=== PATIENT | male | born 1950 | race Caucasian/White ===

== ENCOUNTER → 2017-04-22 | Outpatient (CLI) | payer BC ==
[~2017-04-22] VITALS: Ht 170.2 cm; Wt 106.3 kg
[~2017-04-22] MED LIST: ACETAMINOPHEN325 M1 PO; AMBIEN 5 MG TABL5 M1 PO; BRILINTA90 MG PO; CELEBREX 200 M200 M1 PO; CRESTOR20 MG PO; CRESTOR5 MG PO; DICLOFENAC SODI75 MG PO; DOXYCYCLINE HY100 M3 PO; EFFIENT10 MG PO; FLOMAX0.4 MG PO; GLUCOSAMINE &1 EACH PO; HYDROCODON-ACE1 EAC1 PO; HYDROCODON-ACE1 EAC8 PO; IBUPROFEN 200200 M1 PO; LIMBREL 500 MG500 MG PO; LISINOPRIL2.5 MG PO; LOPRESSOR 50 MG50 M1; LOW DOSE ASPIRI81 M1 PO; MELOXICAM7.5 MG PO; METHADONE HCL 110 M1 PO; METOPROLOL SUCC25 M1 PO; MOVANTIK12.5 MG PO; MS CONTIN 60 MG60 M1 PO; MS CONTIN100 MG PO; MS CONTIN30 MG PO; MS CONTIN60 MG PO; NAPROSYN250 MG PO; OXYCODONE HCL15 MG PO; OXYCODONE-ACET1 EAC2 PO; REMERON15 MG PO; SENNA8.6 MG PO; TOPROL XL25 MG PO; TRIAMCINOLONE A80 G2 TOP; TYLENOL EXTRA500 MG PO
--- NOTE | ~2017-04-22 | HPC ---
[facility] [address] [place] [address] PAIN MANAGEMENT CONSULTATION Name: LAINA COX Room #: REG [facility] M..#: [id number] Admission: 04/22/17 Attend Phys: Roberto Carlos De León MD Discharge: Date of : 54 Report #: [id number] THIS REPORT FOR: //name// CC: Roberto Carlos York MD DATE OF REGISTRATION: 04/22/2017. Followup visit for management of high risk medications for intractable bilateral knee pain. HISTORY OF PRESENT ILLNESS: The patient returns to pain clinic today for complaint to severe bilateral osteoarthritis of the knee. I have performed injections for him with good success in the past. He was one time over 300 mg of morphine milligram equivalents. We have tapered him slowly down to dose now of 150 mg of morphine per day along with oxycodone 10/325 one tablet 3 times a day for breakthrough pain. 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 His goal is to work as long as he can and medication is helpful for him in doing so. Injections and medications to help with knee pain are part of that process as well. We talked about trying to lower his medications further, but over the course of last year, I have been able a drop was morphine by 50%. He says that he really noticed last drop. I have suggested that we had a coanalgesics celecoxib or Celebrex 200 mg once daily with caveats and precautious regarding the use of the NÚÑEZ-2 inhibiting antiinflammatories. Hope this will make a big difference. I am pretty sure the urine drug screens have been reviewed and are appropriate for medications ordered. There have been no surprises. We will repeat that in the future given his dose above 90 morphine milligram equivalents. We discussed important functional goals keeping him working. He has no significant side effects at this time. PHYSICAL EXAMINATION: GENERAL: This is pleasant, alert and oriented, he is wearing his work clothes. VITAL SIGNS: His blood pressure is 159/92, heart rate 85. EXTREMITIES: He moves from a sitting to standing position and ambulates without antalgic features. He has tenderness in his knees bilaterally. IMPRESSION: 1. Osteoarthritis, bilateral knees. 2. Chronic low back pain. 3. Management of high risk medication. [address] [address] PAIN MANAGEMENT CONSULTATION Name: LAINA COX [facility] #: [id number] Admission: 04/22/17 Attend Phys: Roberto Carlos De León MD Discharge: Date of : 54 Report #: [id number] PROCEDURE: Bilateral injections of the knee under fluoroscopic guidance. The patient was taken to fluoroscopic suite, placed supine, skin was prepped with ChloraPrep of each knee. Using a lateral approach, I advanced 25-gauge needle into the patella into the joint space and injected 1 mL of Omnipaque demonstrated spread of dye within the joint space and subpatellar region. It was then followed by 4 mL of 0.5% bupivacaine with 40 mg of triamcinolone into each joint. He tolerated the injections well. MEDICATIONS: Provided at discharge were MS Contin 60 mg b.i.d. and 30 mg at bedtime for a total of 150 mg a day, oxycodone 10/325 one tablet t.i.d. and Celebrex 200 mg once daily. Followup visit planned in 3 months. <ELECTRONICALLY SIGNED> By: Roberto Carlos De León MD 04/22/17 1714 1157 [id number] Roberto Carlos De León MD /nt
[2017-04-22 08:12] VITALS: BP 129/79
== END | disposition home or self-care (01) ==
LOC: PAIN 06:53
DX: M17.0 Bilateral primary osteoarthritis of knee (principal); M54.5 Low back pain; G89.29 Other chronic pain; F11.20 Opioid dependence, uncomplicated; Z87.891 Personal history of nicotine dependence; Z88.8 Allergy status to other drugs, medicaments and biological substances; Z79.82 Long term (current) use of aspirin; Z79.899 Other long term (current) drug therapy; Z98.890 Other specified postprocedural states

== ENCOUNTER → 2017-07-29 | Outpatient (CLI) | payer BC ==
[~2017-07-29] VITALS: Ht 175.3 cm; Wt 104.9 kg
[~2017-07-29] MED LIST changes: +LIPITOR 20 MG T20 M1 PO
--- NOTE | ~2017-07-29 | HPC ---
[facility] [address] [address] PAIN MANAGEMENT CONSULTATION Name: LAINA COX Room #: REG CL MPastor.#: [id number] Admission: 07/29/17 Attend Phys: Roberto Carlos De León MD Discharge: Date of : 54 Report #: [id number] THIS REPORT FOR: //name// CC: Roberto Carlos York DATE OF SERVICE: 07/29/2017 Followup visit for management of bilateral knee pain. HISTORY OF PRESENT ILLNESS: The patient returns to pain clinic today for renewal of his medication. He remains on high dose morphine. We have been tapering his medication and he is currently at 150 mg of morphine per day in long acting formulation and he also takes 3 oxycodone 10/325 tablets per day. This is a high morphine milligram equivalent over 200 and we have discussed his long-term use of opioids again today in some detail. We discussed efforts to continue to taper his medication. The important issue for the patient, is that he works fulltime. 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 He has a good relationship with this employer, who is hoping to continue him on the job for another year or so. 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 He believes that without medication, he would not be able to continue working and willing to continue his medication. I have suggested co-analgesics to help reduce his reliance on opioids. He denies any significant side effects and safeguards his medication carefully. His most recent urine drug screen was about 18 months ago. It was appropriate for oxycodone and morphine, as they have always been. We will repeat screen in his subsequent visit. Importance of safeguarding all medication and using it as prescribed was discussed. He has a single pharmacy. PHYSICAL EXAMINATION: Pleasant, alert and oriented, without signs of overmedication, depression or anxiety. Moves easily from sitting to standing position but walks with a stiff gait owing to his arthritic knees. There is local tenderness. No fluid or swelling. IMPRESSION: 1. Osteoarthritis, bilateral knees. 2. Chronic low back pain. 3. Management of high risk medication. Currently, over 200 morphine milligram equivalents. PLAN: We will renew his medications under terms [place] [address] PAIN MANAGEMENT CONSULTATION Name: LAINA COX Room #: REG CLI Prabhjot#: [id number] Admission: 07/29/17 Attend Phys: Roberto Carlos De León MD Discharge: Date of : 54 Report #: [id number] have discussed options for treatment of his knees once he retires. I will see him back in three months. By: [id number] [id number] Roberto Carlos De León MD /nt
[2017-07-29 10:07] VITALS: BP 158/77
== END ==
LOC: PAIN 06:14
DX: M17.0 Bilateral primary osteoarthritis of knee (principal); M54.5 Low back pain

== ENCOUNTER → 2018-01-13 | Outpatient (CLI) | payer OTHER ==
[~2018-01-13] VITALS: Ht 177.8 cm; Wt 104.1 kg
[~2018-01-13] MED LIST changes: +GABAPENTIN 100100 MG PO; +GLUCOTROL5 MG PO; +IBUPROFEN 600600 M1 PO; +MELOXICAM15 MG PO
--- NOTE | ~2018-01-13 | HPC ---
[facility] [address] [place] [place] [place] [address] PAIN MANAGEMENT CONSULTATION Name: LAINA COX Room #: REG [facility] M..#: [id number] Admission: 01/13/18 Attend Phys: Roberto Carlos De León MD Discharge: Date of : 54 Report #: [id number] THIS REPORT FOR: //name// CC: Roberto Carlos York MD DATE OF SERVICE: 01/13/2018 Followup visit for osteoarthritis. The patient came to the pain clinic today prepared to continue decreasing his opioid requirements. I have been reducing his dose over the course of the last year. Today, he said that he feels he can make a larger jump. He would like to get down to the 90 morphine milligram equivalents that we had discussed at the last visit. This would be a fairly substantial dose reduction. Just 2 months ago, he was at 190 morphine milligrams. Now we will have him down to 90. The way we plan to do this is to provide him with 30 morphine long acting in the morning and evening and provide him with two oxycodone for breakthrough. At maximum, he was receiving morphine long acting 60 mg twice a day and 30 at bedtime followed by up to three oxycodone for breakthrough. We have done most of the reduction here with the reduction in long-acting morphine. He is slowing down a bit at work and says that he may be ready to retire. One of our goals in providing with his medication was to help him continue to work until he could retire. It appears that we have achieved that goal. PHYSICAL EXAMINATION: He is pleasant, alert and oriented without signs of overmedication. Blood pressure 157/91, heart rate 92 and respirations 16. BMI is 32. Moves from sitting to standing position, ambulates without too much difficulty, has pain across his low back and tenderness. He has bilateral knee pain and aching with some mild crepitus with movements. IMPRESSION: 1. Chronic low back pain with lumbar spondylosis. 2. Chronic osteoarthritis, bilateral knees. PLAN: Medications were provided as described above for 90 morphine milligram equivalents per day. All medications were reviewed and reconciled. I plan to see him back in the pain clinic in 3 months. I have told him if he is going through withdrawal or he finds that this dramatic [address] [address] PAIN MANAGEMENT CONSULTATION Name: LAINA COX Room #: REG [facility] Prabhjot#: [id number] Admission: 01/13/18 Attend Phys: Roberto Carlos De León MD Discharge: Date of : 54 Report #: [id number] drop is uncomfortable for him to call our office and we will see if we can make some arrangements to make the taper more slowly. <ELECTRONICALLY SIGNED> By: Roberto Carlos De León MD 02/21/18 1408 1603 0318 Roberto Carlos De León MD /nt
[2018-01-13 14:21] VITALS: BP 157/91
== END ==
LOC: PAIN 11-29 07:03
DX: M47.896 Other spondylosis, lumbar region (principal); M17.0 Bilateral primary osteoarthritis of knee

== ENCOUNTER → 2018-06-16 | Outpatient (CLI) | payer OTHER ==
[~2018-06-16] VITALS: Ht 177.8 cm; Wt 103.3 kg
[~2018-06-16] MED LIST changes: -GABAPENTIN 100100 MG PO; -IBUPROFEN 600600 M1 PO
--- NOTE | ~2018-06-16 | HPC ---
[facility] [place] [address] PAIN MANAGEMENT CONSULTATION Name: LAINA COX Room #: REG CL MPastor.#: [id number] Admission: 06/16/18 Attend Phys: Roberto Carlos De León MD Discharge: Date of : 54 Report #: [id number] THIS REPORT FOR: //name// CC: Roberto Carlos York DATE OF SERVICE: 06/16/2018 Followup visit for osteoarthritis, bilateral knees. The patient returns to pain clinic today and would like injections in each knee. I performed injections for him with good benefit in the past, providing up to 3-4 months of pain relief at times. He continues to work part-time. He has been a patient of mine for a number of years and our goal has always been to get him to work. He is now 67. He would like to continue working a bit longer. Medication has always been reported to provide significant improvement in his day-to-day activities and allowing him to be more functional at work. Without medication, he tells me he would be unable to work. He was on much higher dose opioid medication, but we have slowly tapered him down to the upper level of the moderate range of opioid prescribing in the CDC guideline at 90 MME per day. I would like to continue to make progress and chopping that further as he moves towards residential. In addition to morphine and oxycodone, which make up to 90 MME, he is on meloxicam 15 mg daily. I am of course concerned about his use of nonsteroidal anti-inflammatory drugs as well as side effects have been discussed including GI, renal and cardiac. He is on an opioid agreement, which was reviewed in detail today, particularly the important aspect of his safeguarding of medication. The use of opioids for chronic intractable pain seems to be reasonable, but we must make sure that the patients understand that there is a welch component of safe use. He reports that his medication is locked up. He treats them as he does his guns. He reports no diversion activities and we have had no red flag behaviors. Periodic urine drug screens will be performed at a random basis in the future. I will see him at 2-month intervals going forward. He does have about another half month of medication remaining. On physical exam and PQRS, he is pleasant, alert and oriented, without signs of overmedication or depression. His blood pressure is 128/86, heart rate 76, respirations 16, BMI 32.7. He is able to ambulate, but has antalgic features. He has stiffness in his knees. He has pain with lateral movement and tenderness mostly along the medial aspect of the right knee and throughout the entire left knee. He describes it as sharp and aching. Drawer test is negative. Sensation and strength in lower extremities are judged to be equal and symmetrical. IMPRESSION: [facility] [address] [place] [address] PAIN MANAGEMENT CONSULTATION Name: LAINA COX Room #: REG CL Prabhjot#: [id number] Admission: 06/16/18 Attend Phys: Roberto Carlos De León MD Discharge: Date of : 54 Report #: [id number] 1. Osteoarthritis of the knee, bilateral. 2. Management of high risk medication. 3. Chronic back pain with spondylosis. PLAN: Bilateral knee injections under fluoroscopic guidance. PROCEDURE: The patient was taken to fluoroscopic suite, placed supine. Skin was prepped with ChloraPrep. Skin was anesthetized first on the left and a 25-gauge needle was gently advanced into the joint. After negative aspiration, I injected a gentle mL of Isovue which demonstrated an arthrogram followed by 3 mL of 0.5% bupivacaine mixed with 40 mg of triamcinolone. He has tolerated the procedure well. We then moved to the right knee and performed the injection in a similar fashion. There were no complications. He tolerated the procedure well. Pain was reduced in the recovery room nearly immediately with the local anesthetic effect. Medications were renewed for the next month and a half. He will pick these prescriptions up at his predetermined time at his pharmacy. K-TRACS will be checked to confirm single prescriber and single pharmacy. By: [id number] Roberto Carlos De León MD /nt
[2018-06-16 09:02] VITALS: BP 128/86
== END | disposition home or self-care (01) ==
LOC: PAIN 06:36
DX: M17.0 Bilateral primary osteoarthritis of knee (principal); M47.816 Spondylosis without myelopathy or radiculopathy, lumbar region; G89.29 Other chronic pain; Z79.899 Other long term (current) drug therapy; Z79.891 Long term (current) use of opiate analgesic; Z88.8 Allergy status to other drugs, medicaments and biological substances

== ENCOUNTER → 2018-08-16 | Outpatient (CLI) | payer OTHER ==
[~2018-08-16] VITALS: Ht 177.8 cm; Wt 103.7 kg
[~2018-08-16] MED LIST changes: +GABAPENTIN 100100 MG PO; +IBUPROFEN 600600 M1 PO
--- NOTE | ~2018-08-16 | HPC ---
[facility] [address] [address] PAIN MANAGEMENT CONSULTATION Name: LAINA COX Room #: REG CL M.R.#: [id number] Admission: 08/16/18 Attend Phys: Roberto Carlos De León MD Discharge: Date of : 54 Report #: [id number] THIS REPORT FOR: //name// CC: Roberto Carlos York MD DATE OF SERVICE: 08/16/2018 REASON FOR CONSULTATION: Followup visit for management of chronic intractable pain. HISTORY OF PRESENT ILLNESS: The patient returns to Pain Clinic today for medication renewal. He is treated for osteoarthritis, most severe in his knees bilaterally. I have been providing with opioid medications now for several years and he has been subjected to buccal drug screenings, which have been appropriate for his medication use. He is on 90 morphine milligram equivalents taking oxycodone 10/325 twice a day and morphine sulfate extended release 30 mg, morning and evening. Long ago, he told me that he intended to retire when he got to the age of 67, but he is now 68 years old and still going strong. He attributes his good pain control to his ability to continue working and is grateful for the relief that he gets allowing him to do so. He denies any significant side effects. Over and over again, we have discussed the opioid crisis. We talked about this at the serious nature of using opioid medications and his responsibilities of safeguarding medication, which he does carefully. He has shown no abusive behaviors in my clinic and I have checked in [facility] prescription drug monitoring and all prescriptions have been provided by myself or through my clinic. There are no additional prescribers noted dating back as far as we can see. PQRS review is completed. He does have osteoarthritis bilaterally of the lower extremity involving the knees. He is mildly overweight at 32.8 and is weight certainly contributes to his pain. He has been addressed in discussions regarding diet control. His pain intensity is a 3 with medication. He is on no blood thinner, but has hypertension and is treated up with medications, which were reviewed elsewhere on the electronic medical record. No changes. He has an opioid agreement, last signed in 2015. He has a risk assessment tool suggesting that he is at low risk for any sort of opioid misuse or addiction. His functional assessment tool is showing that he is doing really pretty well. He does not smoke nor does use alcohol. IMPRESSION: 1. Chronic intractable pain related to osteoarthritis. 2. Management of high risk medications under terms of written opioid agreement. [facility] [address] [place] [address] PAIN MANAGEMENT CONSULTATION Name: LAINA COX [id number] Admission: 08/16/18 Attend Phys: Roberto Carlos De León MD Discharge: Date of : 54 Report #: [id number] He is cautious about safeguarding all medications. 3. Chronic low back pain with spondylosis. He has responded favorably in the past to injections for arthritis and spondylosis and that may remain in our toolbox for treatment going forward in the future. By: [id number] Roberto Carlos De León MD /nt
[2018-08-16 10:05] VITALS: BP 119/89
== END ==
LOC: PAIN 06:54
DX: M54.5 Low back pain (principal); G89.4 Chronic pain syndrome; M25.562 Pain in left knee; M25.561 Pain in right knee; Z79.899 Other long term (current) drug therapy

== ENCOUNTER → 2018-11-24 | Outpatient (CLI) | payer OTHER ==
[~2018-11-24] VITALS: Ht 175.3 cm; Wt 105.7 kg
[~2018-11-24] MED LIST changes: +MOBIC15 MG PO; +MORPHABOND ER30 MG PO
[2018-11-24 09:34] VITALS: BP 141/85
--- NOTE | 2018-11-24 09:35 | NUR ---
Pain Clinic Assessment: 1. History of Osteoarthritis: Left Lower Extremity Right Lower Extremity History of Rheumatoid Arthritis: Not Applicable 2. Height: 5 ft. 9 in. 175.3 cm. Weight: 233.0 lb. oz. 105.688 kg. Patient's BMI: 34.4 3. Vital Signs: BP: 141/85 Pulse: 96 Resp: 16 Temp: 02 Sat: 98 ECG Mon: 4. Pain Intensity: 3 5. Fall Risk: Dizziness: N Needs help standing or walking: N Fallen in the last 3 months: N Fall risk comments: 6. Patient on Blood Thinner: None 7. History of Hypertension: Y 8. Opioid Therapy greater than 6 weeks: Y Opiate Contract Signed: 05/14/16 9. Risk Assessment Tool Provided: LOW RISK 1 10. Functional Assessment Tool: 11. Recreational Drug Use: Never Drug Type: Tobacco Use: Former Smoker Tobacco Type: Amount or Packs/day: How Many Years: Alcohol Use: Past use Frequency: Quant:
--- NOTE | 2018-11-25 07:55 | HPC ---
[facility] [address] [place] [address] PAIN MANAGEMENT CONSULTATION Name: LAINA COX Room #: REG [facility] MPastor.#: [id number] Admission: 11/24/18 Attend Phys: Bailey Pisano Discharge: Date of : 54 Report #: [id number] THIS REPORT FOR: //name// CC: Bailey Milleren Kristymadisonlluvia DATE OF SERVICE: 11/24/2018 CHIEF COMPLAINT: Followup visit for chronic intractable pain. HISTORY OF PRESENT ILLNESS: The patient returns to the pain clinic today for his medication refill. He has severe osteoarthritis in his knees bilaterally and also has low back pain. The patient tells me that his medications are very helpful. He tells me that he did retire for a short time, which was his plan on our last visit that we saw him. 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 He is able to work 5 hours a day and still keep his social security benefits. 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 He says he is happy to be back to work and doing much better with his knee pain since he has returned to work. His pain score today is 3/10, mostly an achy pain, worse with walking or inactivity. He tells me that he does have a little bit of constipation, but it is manageable with medications and has gotten better since he has decreased his meds. He feels like he is on a good regimen right now and would like a refill of his medications today. CURRENT ALLERGIES: KEFLEX. CURRENT MEDICATIONS: Oxycodone 10/325 twice a day as needed, Ambien 5 mg at bedtime as needed, morphine sulfate 30 mg twice a day, meloxicam 15 mg daily, gabapentin 100 mg 3 times a day, Glucotrol 5 mg daily, Lipitor 20 mg at bedtime, Flomax 0.4 mg at bedtime, Senokot daily, glucosamine and chondroitin daily and 81 mg aspirin daily. PQRS: 1. He has a history of osteoarthritis in his bilateral knees and lower back. Denies rheumatoid arthritis. 2. Height is 5 feet 9 inches, weight is 233. BMI is 34.4. 3. Vital signs: Blood pressure 141/85, pulse is 96, respirations 16, oxygen sat is 98%. 4. Pain score is 3/10. 5. Denies dizziness. Does not need help walking [place] [address] PAIN MANAGEMENT CONSULTATION Name: LAINA COX Room #: REG CL Prabhjot#: [id number] Admission: 11/24/18 Attend Phys: Bailey Pisano Discharge: Date of : 54 Report #: [id number] fallen in the last 3 months. 6. The patient is not on a blood thinner. Does have a history of taking hypertension medications. 7. Opioid therapy is greater than 6 weeks, therefore, an opioid signed contract is on the chart. 8. Risk assessment tool is low. His functional assessment is 19/70. 9. Recreational drug use: The patient denies. He is a former smoker and does not use alcohol. We did check the prescription monitoring system. The patient is filling appropriately from Dr. Roberto Carlos De León for his medications. No aberrant behavior noted. His drug screen has been greater than a year, so we will repeat that today. The patient tells me that he does safeguard his medications. PHYSICAL EXAMINATION: GENERAL: This is a very pleasant, alert, well-developed gentleman that appears his stated age. His affect is appropriate. He is a good historian. No signs of depression. HEENT: Normocephalic, atraumatic. Extraocular eye muscles are intact. Mucous membranes are moist and hearing is adequate. NECK: No JVD or adenopathy noted. MUSCULOSKELETAL: He is able to ambulate, but does have some antalgic features. Stiffness in bilateral knees. He describes pain as sharp and achy in his knees. Sensation and strength in lower extremities judged to be equal and symmetrical of 5/5. DIAGNOSTIC IMPRESSION: 1. Chronic intractable pain related to osteoarthritis in his bilateral knees and lower back. 2. Management of high risk medications under terms of written opioid agreement. 3. Chronic back pain with spondylosis. We reviewed the fact that opiate medications are being used to provide analgesia adequate to support activities of daily living, not attempting to achieve a specific pain score on the 0-10 Visual Analog Scale. The current opiate medications are providing sufficient analgesia to allow the patient to participate in activities of daily living. The patient is not exhibiting any aberrant behavior suggestive of drug diversion. The patient is not having any adverse reactions to medications. The patient is not suffering from daytime somnolence or mental acuity changes. The patient is managing opiate-induced constipation with appropriate hliv-eqe-tvyqhxt agents and dietary considerations. The patient was counseled on concern for caution with operating a motor vehicle while using opiate medications. A physical exam was performed and the patient's functional status was evaluated. All patients with back pain were advised against the bed rest greater than 4 days and were advised to return to normal activities. Pain score assessment was [facility] [address] [place] [address] PAIN MANAGEMENT CONSULTATION Name: LAINA COX Room #: REG CL M.R.#: [id number] Admission: 11/24/18 Attend Phys: Bailey Pisano Discharge: Date of : 54 Report #: [id number] noted and the treatment plan was reviewed with the patient. All current medications, both prescribed and OTC were reviewed and reconciled on the electronic medical record. Tobacco screening was accomplished and smoking cessation was advised when indicated. BMI was noted and diet/exercise modification was recommended for all patients following outside normal parameters. I reviewed with the patient today their responsibilities to safeguard prescription medications, reviewed their responsibility to utilize medications only as prescribed by the physician. They are to seek and receive pain medications only from 1 physician group ( [facility]). They are to use 1 pharmacy and keep the clinic informed if they change pharmacies. Their responsibilities include making followup visits in a timely fashion and to avoid abrupt discontinuation of medication usage. Their responsibilities further include bringing their medications (bottles from the pharmacy with residual pills) to the visit for possible confirmation of pill counts and the patient understands it is their responsibility to submit to random drug screens to ensure both that the medications prescribed are present, and that no other controlled substances are present. All prescriptions provided today were generated electronically. PLAN: 1. Treatment options were discussed with the patient today. He tells me that he has been doing quite well on his current pain regimen and would like refills of his medications today. We discussed the CDC guidelines that he is at 90 mEq of morphine per day, which the CDC recommends being at 90 or below. Therefore, in our clinic, it is a practice that we will see him in every 3 months, so scripts given today for morphine sulfate 30 mg twice a day, #60 for today, 4 and 8-week release; Percocet 10/325, #60 for today, for an 8-week release; Meloxicam 15 mg #30 with 2 additional refills for a total of 3 months. The patient does also take Ambien from us but is not needing a refill at this time of that medication. 2. Since it has been greater than a year since his last drug screen, we will repeat the buccal swab today. The patient is agreeable with this understanding that we need to test patients periodically. 3. The patient is seen in collaboration today with Dr. Roberto Carlos De León. <ELECTRONICALLY SIGNED> By: Bailey Pisano 11/25/18 [id number] Bailey Pisano /miguel
== END ==
LOC: PAIN 07:01
DX: M47.816 Spondylosis without myelopathy or radiculopathy, lumbar region (principal); M17.0 Bilateral primary osteoarthritis of knee; G89.4 Chronic pain syndrome; Z79.899 Other long term (current) drug therapy; Z79.891 Long term (current) use of opiate analgesic

== ENCOUNTER → 2019-01-26 | Outpatient (CLI) | payer OTHER ==
[~2019-01-26] VITALS: Ht 175.3 cm; Wt 104.7 kg
[~2019-01-26] MED LIST changes: +OXYCODON-ACETA1 EAC1 PO; +OXYCODONE-APAP1 EAC6 PO
--- NOTE | ~2019-01-26 | HPC ---
[facility] [place] [address] PAIN MANAGEMENT CONSULTATION Name: LAINA COX Room #: REG [facility].#: [id number] Admission: 01/26/19 ������������������ Attend Phys: Roberto Carlos De León MD Discharge: ������������������ Date of : 54 Report #: [id number] THIS REPORT FOR: //name// CC: Roberto Carlos York MD DATE OF SERVICE: 01/26/2019 Followup visit for chronic pain, multiple pain generators. The patient is a longstanding patient of our clinic, who receives opioid medication for the treatment of osteoarthritis and low back pain. He has been reasonably stable and has continued to work over the many years that I have cared for him. One of our goals of treatment to establish early on in 2011 was to get him through the upcoming years into Medicare. He finally reached Medicare age in 2018. 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 He reports that his pain is mostly in his knees today, although he also has pain across his low back. Intensity is 4/10. Knee pain is worse with standing, bending, walking, anything that requires him to be on his knees. He is unable to do some of the work that he was able to do previously. Pain is typically worse in the morning. It is alleviated by his medications. He is grateful for them and has no side effects. He uses ice. MEDICATIONS: For pain are morphine sulfate 30 mg b.i.d. and oxycodone 10/325 one tablet twice daily. His MME is 90. In addition, he uses meloxicam 15 mg once daily, gabapentin 100 mg t.i.d., zolpidem for sleep. Glipizide, atorvastatin, tamsulosin, senna, glucosamine and chondroitin, and aspirin. ALLERGIES: KEFLEX. PQRS is positive for osteoarthritis. Pain score variably 4-10 depending on activity. He is not a fall risk. He is on no blood thinners, but takes medications for hypertension. He has an opioid agreement and his functional assessment to score is 17/70 showing good activity and his risk assessment score is in the low category. We reviewed his opioid agreement and he will carefully safeguard his medications. He denies use of tobacco or alcohol. PHYSICAL EXAMINATION: Pleasant, alert and oriented. No signs of overmedication, depression or addiction. He moves easily from sitting to standing position, but when he ambulates, he has pain in his knees and there are antalgic features to his gait. Straight leg raising as painful mostly within [facility] [address] [place] [address] PAIN MANAGEMENT CONSULTATION Name: LAINA COX Room #: REG [facility]#: [id number] Admission: 01/26/19 ������������������ Attend Phys: Roberto Carlos De León MD Discharge: ������������������ Date of : 54 Report #: [id number] the knees. There is tenderness. There is no swelling noted. No erythema. Most of the pain is medial on both knees, right worse than left. IMPRESSION: 1. Osteoarthritis, bilateral knees. 2. Chronic low back pain. 3. Management of high risk medications under terms of written opioid agreement. I reviewed his prescription drug monitoring program information and his most recent buccal drug screen performed on 11/24/2018. It is appropriate for all medications provided by our clinic, morphine and oxycodone. There are no unexpected findings on his PDMP or on his drug screen. Medications were renewed under terms of our agreement, but I have reduced them slightly decreasing his oxycodone from 10/325-7.5/325. This will result in an MME of 82. PROCEDURE: Bilateral knee injections under fluoroscopic guidance. He was taken to fluoroscopic suite, placed in the supine position. Skin was prepped with ChloraPrep first on the right. A 25-gauge needle was gently advanced into the knee joint and 0.25 mL of Omnipaque demonstrated in arthrogram and was followed by 3 mL of 0.5% bupivacaine mixed with 40 mg of triamcinolone. He tolerated the procedure well. The procedure was repeated on the left. He was discharged in good condition. In the future, he may be a candidate for knee replacement if this remains as primary pain generator. His plain film x-rays do not look bad. We would need to proceed with MRI and refer him on to an orthopedic surgeon. He seems reluctant to do this. Followup visit planned in 3 months. ��������������������������������������������� ���������������������������������������� By: ��������������������������������������������� [id number] Roberto Carlos De León MD /nt
[2019-01-26 08:40] VITALS: BP 155/88
--- NOTE | 2019-01-26 08:57 | NUR ---
Pain Clinic Assessment: 1. History of Osteoarthritis: Left Lower Extremity Right Lower Extremity History of Rheumatoid Arthritis: Not Applicable 2. Height: 5 ft. 9 in. 175.3 cm. Weight: 230.8 lb. oz. 104.690 kg. Patient's BMI: 34.1 3. Vital Signs: BP: 155/88 Pulse: 90 Resp: 16 Temp: 02 Sat: 98 ECG Mon: 4. Pain Intensity: 4 5. Fall Risk: Dizziness: N Needs help standing or walking: N Fallen in the last 3 months: N Fall risk comments: 6. Patient on Blood Thinner: None 7. History of Hypertension: Y 8. Opioid Therapy greater than 6 weeks: Y Opiate Contract Signed: 05/14/16 9. Risk Assessment Tool Provided: LOW RISK 1 10. Functional Assessment Tool: 11. Recreational Drug Use: Never Drug Type: Tobacco Use: Former Smoker Tobacco Type: Amount or Packs/day: How Many Years: Alcohol Use: Past use Frequency: Quant:
== END | disposition home or self-care (01) ==
LOC: PAIN 06:54
DX: M17.0 Bilateral primary osteoarthritis of knee (principal); M54.5 Low back pain; G89.29 Other chronic pain; I10 Essential (primary) hypertension; M19.90 Unspecified osteoarthritis, unspecified site; Z88.8 Allergy status to other drugs, medicaments and biological substances; Z79.82 Long term (current) use of aspirin; Z98.890 Other specified postprocedural states; Z79.899 Other long term (current) drug therapy; Z79.891 Long term (current) use of opiate analgesic; Z87.891 Personal history of nicotine dependence

== ENCOUNTER → 2019-05-12 | Outpatient (CLI) | payer OTHER ==
[~2019-05-12] VITALS: Ht 175.3 cm; Wt 104.3 kg
[2019-05-12 08:03] VITALS: BP 140/79
--- NOTE | 2019-05-12 08:11 | NUR ---
Pain Clinic Assessment: 1. History of Osteoarthritis: Left Lower Extremity Right Lower Extremity History of Rheumatoid Arthritis: Not Applicable 2. Height: 5 ft. 9 in. 175.3 cm. Weight: 230.0 lb. oz. 104.328 kg. Patient's BMI: 33.9 3. Vital Signs: BP: 140/79 Pulse: 93 Resp: 16 Temp: 02 Sat: 95 ECG Mon: 4. Pain Intensity: 2 5. Fall Risk: Dizziness: N Needs help standing or walking: N Fallen in the last 3 months: N Fall risk comments: 6. Patient on Blood Thinner: None 7. History of Hypertension: Y 8. Opioid Therapy greater than 6 weeks: Y Opiate Contract Signed: 05/14/16 9. Risk Assessment Tool Provided: LOW RISK 1 10. Functional Assessment Tool: 11. Recreational Drug Use: Never Drug Type: Tobacco Use: Former Smoker Tobacco Type: Amount or Packs/day: How Many Years: Alcohol Use: Past use Frequency: Quant:
--- NOTE | 2019-05-15 10:52 | HPC ---
[facility] [address] [address] PAIN MANAGEMENT CONSULTATION Name: LAINA COX [id number] Admission: 05/12/19 ������������������ Attend Phys: Bailey Pisano Discharge: ������������������ Date of : 54 Report #: [id number] THIS REPORT FOR: //name// CC: Bailey Pisano Timothy Kristymadisonlluvia DATE OF SERVICE: 05/12/2019 CHIEF COMPLAINT: Chronic intractable pain with multiple pain generators. HISTORY OF PRESENT ILLNESS: This is a very pleasant 68-year-old gentleman who returned to the pain clinic for refill of his medication that he uses to treat his osteoarthritis and his low back pain. He tells me he has been doing quite well, even despite the decrease of his oxycodone strength 3 months ago. He tells me his pain score is 2/10 today. He does have some flare-ups especially in the middle of the night. He tells me during the day, he can handle his pain quite well, being active and using distraction, but at night when he is lying down, seems to be the worse. He does use ice and his medication that he finds very helpful in relieving some of his pain. He tells me since he has decreased his narcotic use, his constipation is better. His injections that he received in his knees helped him at least 90% for the first month or two and now is still at least 50% better. He can tell that he is slowly having more pain and that is why he is waking up in the middle of the night with knee pain. He does have also ongoing low back pain that is achy and sharp. ALLERGIES: KEFLEX and PLAVIX. CURRENT MEDICATIONS: Oxycodone 7.5/325 twice a day, morphine sulfate 30 mg b.i.d., meloxicam 15 mg daily, Ambien p.r.n., gabapentin 100 mg t.i.d., Glucotrol 5 mg daily, atorvastatin 20 mg daily, Flomax 0.4 mg daily, Senna, glucosamine chondroitin, and aspirin. PQRS: 1. Positive for osteoarthritis. He denies any rheumatoid arthritis. 2. Height is 5 feet 9 inches, weight is 230, BMI is 33. 3. Vital signs; blood pressure 140/79, pulse is 93, respirations 16, and oxygen sat is 95. 4. Pain score is 2/10. 5. Fall risk. Denies dizziness. Does not need help walking or standing. He has not fallen in the last 3 months. 6. The patient is not on any blood thinners. He does take medicine for hypertension. 7. Opiate therapy is greater than 6 weeks; therefore, an opiate signed contract is on the chart. 8. Risk assessment tool is low. Functional assessment is . 9. Recreational drug use, he denies. He is a former smoker [place] [address] PAIN MANAGEMENT CONSULTATION Name: LAINA COX Room #: REG CL Prabhjot#: [id number] Admission: 05/12/19 ������������������ Attend Phys: Baiely Pisano Discharge: ������������������ Date of : 54 Report #: [id number] alcohol. We did check the prescription monitoring system. The patient is due to fill his medicine within the week. He was filling them only from our physicians and there is a recent drug screen on the chart as well. PHYSICAL EXAMINATION GENERAL: This is a pleasant, alert, and orientated gentleman who appears his stated age. Placing his pain score today at 2/10 showing no signs of overmedication. HEENT: Normocephalic, atraumatic. Extraocular eye muscles are intact. Mucous membranes are moist. Hearing is adequate. NECK: No JVD or adenopathy. MUSCULOSKELETAL: He moves easily from sitting to standing position when he ambulates. He has pain in his knees and there is some antalgic gait. Straight leg raising is positive in his knees. He has tenderness bilaterally in his knees. No swelling noted. IMPRESSION: 1. Osteoarthritis, bilateral knees. 2. Chronic low back pain, spondylosis. 3. Management of high-risk medications and return to written opioid agreement. We reviewed the fact that opiate medications are being used to provide analgesia adequate to support activities of daily living, not attempting to achieve a specific pain score on the 0-10 Visual Analog Scale. The current opiate medications are providing sufficient analgesia to allow the patient to participate in activities of daily living. The patient is not exhibiting any aberrant behavior suggestive of drug diversion. The patient is not having any adverse reactions to medications. The patient is not suffering from daytime somnolence or mental acuity changes. The patient is managing opiate-induced constipation with appropriate kpua-guu-xvltxuk agents and dietary considerations. The patient was counseled on concern for caution with operating a motor vehicle while using opiate medications. A physical exam was performed and the patient's functional status was evaluated. All patients with back pain were advised against the bed rest greater than 4 days and were advised to return to normal activities. Pain score assessment was noted and the treatment plan was reviewed with the patient. All current medications, both prescribed and OTC were reviewed and reconciled on the electronic medical record. Tobacco screening was accomplished and smoking cessation was advised when indicated. BMI was noted and diet/exercise modification was recommended for all patients following outside normal parameters. I reviewed with the patient today their responsibilities to [address] [place] [address] PAIN MANAGEMENT CONSULTATION Name: LAINA COX Room #: REG [facility] M..#: [id number] Admission: 05/12/19 ������������������ Attend Phys: Bailey ELAINE Pisano Discharge: ������������������ Date of : 54 Report #: [id number] prescription medications, reviewed their responsibility to utilize medications only as prescribed by the physician. They are to seek and receive pain medications only from 1 physician group ( [facility]). They are to use 1 pharmacy and keep the clinic informed if they change pharmacies. Their responsibilities include making followup visits in a timely fashion and to avoid abrupt discontinuation of medication usage. Their responsibilities further include bringing their medications (bottles from the pharmacy with residual pills) to the visit for possible confirmation of pill counts and the patient understands it is their responsibility to submit to random drug screens to ensure both that the medications prescribed are present, and that no other controlled substances are present. All prescriptions provided today were generated electronically. PLAN: 1. We discussed treatment options with the patient today. The patient tells me that he is doing reasonably well, despite the decrease of his medicines though in last 3 months. Scripts given today for MS Contin #60 for today, 4-week and 8-week release and oxycodone 7.5/325, #60 for today for an 8-week release; places the patient at 82.5 morphine milligram milliequivalent well within the CDC guidelines; therefore, he is seen every 3 months. 2. Script given for meloxicam 15 mg, #30 with 2 additional refills. 3. The patient is seen by Dr. Andrew Golden who collaborated care today. ��������������������������������������������� <ELECTRONICALLY SIGNED> ���������������������������������������� By: Bailey Pisano ��������������������������������������������� 05/15/19 [id number] Bailey Pisano /nt
== END ==
LOC: PAIN 06:44
DX: M17.0 Bilateral primary osteoarthritis of knee (principal); M47.816 Spondylosis without myelopathy or radiculopathy, lumbar region; Z79.899 Other long term (current) drug therapy

== ENCOUNTER → 2019-06-15 | Outpatient (CLI) | payer OTHER ==
[~2019-06-15] VITALS: Ht 175.3 cm; Wt 103.8 kg
--- NOTE | ~2019-06-15 | HPC ---
[facility] [place] [address] PAIN MANAGEMENT CONSULTATION Name: LAINA COX Room #: REG [facility] M..#: [id number] Admission: 06/15/19 ������������������ Attend Phys: Roberto Carlos De León MD Discharge: ������������������ Date of : 54 Report #: [id number] THIS REPORT FOR: //name// CC: Roberto Carlos Costello DATE OF SERVICE: 06/15/2019 Followup visit for chronic bilateral knee pain with osteoarthritis. The patient returns to pain clinic today for bilateral knee injections. He has responded very nicely to these. He is also treated with medication for his chronic intractable pain under terms of written opioid agreement established with our clinic. He was seen about 4 weeks ago by Bailey Pisano, the clinical nurse specialist. I reviewed that note. He was seen that day with Dr. Golden as well. He continues on about morphine 80 milligram equivalents including MS Contin 30 mg b.i.d. and oxycodone 7.5 mg 2-3 per day. We have tried to taper him to the lowest effective dose. He has completed an opioid risk assessment tool and his score is 3 for a father with alcoholism. He denies other potential risk factors at this time. I have reviewed his medication use on the prescription drug monitoring program and there are no unexpected entries. PQRS review from 05/12/2019 is unchanged. PHYSICAL EXAMINATION: GENERAL: Pleasant gentleman. VITAL SIGNS: Blood pressure is 138/88, heart rate 93, respirations 16. BMI 33.8. He moves from sitting to standing position, walks with marked antalgic gait. He has tenderness bilaterally of the knees. There is no effusion. He has good range of motion. There is no Cueva cyst or any other deformity noted. No crepitus. There is no radicular component to his pain. IMPRESSION: 1. Osteoarthritis, bilateral knees. 2. Chronic low back pain with spondylosis. 3. Management of high risk medications under terms of written opioid agreement. PLAN: He does not need medication today. He is here for injections. Potential risks and benefits of procedure were reviewed. Once again, he has had this procedure on several occasions with good response. [facility] [address] [place] [address] PAIN MANAGEMENT CONSULTATION Name: LAINA COX [id number] Admission: 06/15/19 ������������������ Attend Phys: Roberto Carlos De León MD Discharge: ������������������ Date of : 54 Report #: [id number] PROCEDURE: Bilateral knee injection under fluoroscopic guidance. He was taken to fluoroscopic suite, placed supine. Skin was prepped with ChloraPrep. A 25-gauge needle was gently advanced into the knee joint on the right and left and Omnipaque demonstrated an arthrogram. At each level, I injected 3 mL of 0.5% bupivacaine mixed with 40 mg triamcinolone. He tolerated the procedures well. Pain score was diminished significantly at discharge and a followup visit planned as needed. ��������������������������������������������� ���������������������������������������� By: ��������������������������������������������� [id number] Roberto Carlos De León MD /miguel
[2019-06-15 14:36] VITALS: BP 138/88
--- NOTE | 2019-06-15 15:54 | NUR ---
Pain Clinic Assessment: 1. History of Osteoarthritis: Left Lower Extremity Right Lower Extremity KNEES History of Rheumatoid Arthritis: Not Applicable 2. Height: 5 ft. 9 in. 175.3 cm. Weight: 228.8 lb. oz. 103.783 kg. Patient's BMI: 33.8 3. Vital Signs: BP: 138/88 Pulse: 93 Resp: 16 Temp: 02 Sat: 97 ECG Mon: 4. Pain Intensity: 6 5. Fall Risk: Dizziness: N Needs help standing or walking: N Fallen in the last 3 months: N Fall risk comments: 6. Patient on Blood Thinner: None 7. History of Hypertension: Y 8. Opioid Therapy greater than 6 weeks: Y Opiate Contract Signed: 05/14/16 9. Risk Assessment Tool Provided: LOW RISK 1 10. Functional Assessment Tool: 11. Recreational Drug Use: Never Drug Type: Tobacco Use: Former Smoker Tobacco Type: Amount or Packs/day: How Many Years: Alcohol Use: Past use Frequency: Quant:
== END | disposition home or self-care (01) ==
LOC: PAIN 06:49
DX: M17.0 Bilateral primary osteoarthritis of knee (principal); G89.29 Other chronic pain; M47.896 Other spondylosis, lumbar region; Z79.891 Long term (current) use of opiate analgesic; Z87.891 Personal history of nicotine dependence; Z88.8 Allergy status to other drugs, medicaments and biological substances; Z79.82 Long term (current) use of aspirin; Z79.899 Other long term (current) drug therapy

== ENCOUNTER → 2019-08-10 | Outpatient (CLI) | payer OTHER ==
[~2019-08-10] VITALS: Ht 172.7 cm; Wt 103.8 kg
[2019-08-10 08:10] VITALS: BP 147/84
--- NOTE | 2019-08-10 08:15 | NUR ---
Pain Clinic Assessment: 1. History of Osteoarthritis: Left Lower Extremity Right Lower Extremity KNEES History of Rheumatoid Arthritis: Not Applicable 2. Height: 5 ft. 8 in. 172.7 cm. Weight: 228.8 lb. oz. 103.783 kg. Patient's BMI: 34.8 3. Vital Signs: BP: 147/84 Pulse: 74 Resp: 16 Temp: 02 Sat: 97 ECG Mon: 4. Pain Intensity: 4 5. Fall Risk: Dizziness: N Needs help standing or walking: N Fallen in the last 3 months: N Fall risk comments: 6. Patient on Blood Thinner: None 7. History of Hypertension: Y 8. Opioid Therapy greater than 6 weeks: Y Opiate Contract Signed: 05/14/16 9. Risk Assessment Tool Provided: LOW RISK 1 10. Functional Assessment Tool: 11. Recreational Drug Use: Never Drug Type: Tobacco Use: Former Smoker Tobacco Type: Amount or Packs/day: How Many Years: Alcohol Use: Past use Frequency: Quant:
--- NOTE | 2019-08-15 09:11 | HPC ---
[facility] [address] [place] [address] PAIN MANAGEMENT CONSULTATION Name: LAINA COX Room #: REG [facility] MRomario.#: [id number] Admission: 08/10/19 Attend Phys: Bailey Pisano Discharge: Date of : 54 Report #: [id number] THIS REPORT FOR: //name// CC: Bailey Pisano Timothy York DATE OF SERVICE: 08/10/2019 CHIEF COMPLAINT: Bilateral knee pain with osteoarthritis. HISTORY OF PRESENT ILLNESS: This is a very pleasant 69-year-old gentleman who returns to the pain clinic today for a refill of his medications that he uses to help treat his chronic intractable pain in his bilateral knees. He reports that the medications are very beneficial in controlling his pain, though he does have flare, especially with weather changes. Dr. Roberto Carlos De León did perform bilateral knee injections on him in June. The patient tells me he was at least 50% better for 6 weeks, then gradually returns back to baseline pain. He understands he can only have those injections about every 4 months, though they are helpful when he is able to have them. Today, he would like a refill of his morphine, morphine and oxycodone for a pain score of 4/10. It is worse with walking and activity and weather changes, and he denies any problems with constipation or daytime sleepiness. ALLERGIES: KEFLEX AND PLAVIX. CURRENT MEDICATIONS: Ambien p.r.n., MS Contin 30 mg b.i.d., oxycodone 7.55/325 b.i.d. p.r.n., meloxicam 15 mg daily, Tylenol Extra Strength p.r.n., gabapentin 100 mg 3 times a day, Glucotrol 5 mg daily, atorvastatin 20 mg at bedtime, Flomax 0.4 mg at bedtime, Senna, glucosamine chondroitin and aspirin 81 mg. PQRS: 1. He has osteoarthritis in his bilateral knees. Denies any rheumatoid arthritis. 2. Height is 5 feet 8 inches, weight is 228, BMI is 34. 3. Vital signs 147/84, pulse is 74, respirations 16, oxygen sat is 94. 4. Pain score is 4/10. 5. Denies dizziness, does not need help walking or standing, has not fallen in the last 3 months. The patient is not on any blood thinners, but does take medicine for hypertension. 6. Opiate therapy is greater than 6 weeks; therefore, an opiate signed contract is on the chart. His risk assessment tool is low. Functional assessment is 70. 7. Recreational drug use, he denies. He is a former smoker and does not drink alcohol. According to the prescription monitoring system, the patient is filling [facility] [address] [place] [address] PAIN MANAGEMENT CONSULTATION Name: LAINA COX Room #: REG CLVirgie Rick#: [id number] Admission: 08/10/19 Attend Phys: Bailey ELAINE Pisano Discharge: Date of : 54 Report #: [id number] appropriately for his medicines and is due for those today. He has a drug screen on the chart that is appropriate for his medications as well. PHYSICAL EXAMINATION: GENERAL: This is a pleasant and alert 69-year-old gentleman who appears his stated age, placing his current pain score at 4/10 today. HEENT: Normocephalic, atraumatic. Extraocular eye muscles are intact. Mucous membranes are moist. MUSCULOSKELETAL: He moves from sitting to standing position without difficulty. He does have pain in his bilateral knees with ambulation and walks with a slightly antalgic gait. Straight leg raising is positive in his knees. He has tenderness bilaterally, with no swelling noted in his knees and no effusions. There is no radicular component to his pain. IMPRESSION: 1. Osteoarthritis in his bilateral knees. 2. Chronic low back pain with spondylosis. 3. Management of high-risk medications under terms of written opioid agreement. We reviewed the fact that opiate medications are being used to provide analgesia adequate to support activities of daily living, not attempting to achieve a specific pain score on the 0-10 Visual Analog Scale. The current opiate medications are providing sufficient analgesia to allow the patient to participate in activities of daily living. The patient is not exhibiting any aberrant behavior suggestive of drug diversion. The patient is not having any adverse reactions to medications. The patient is not suffering from daytime somnolence or mental acuity changes. The patient is managing opiate-induced constipation with appropriate gmuo-myo-ieqwutu agents and dietary considerations. The patient was counseled on concern for caution with operating a motor vehicle while using opiate medications. A physical exam was performed and the patient's functional status was evaluated. All patients with back pain were advised against the bed rest greater than 4 days and were advised to return to normal activities. Pain score assessment was noted and the treatment plan was reviewed with the patient. All current medications, both prescribed and OTC were reviewed and reconciled on the electronic medical record. Tobacco screening was accomplished and smoking cessation was advised when indicated. BMI was noted and diet/exercise modification was recommended for all patients following outside normal parameters. I reviewed with the patient today their responsibilities to safeguard prescription medications, reviewed their responsibility to utilize medications only as prescribed by the physician. They are to seek and receive pain medications only from 1 physician group ( [facility]). They are to use 1 pharmacy and keep the clinic informed if they change pharmacies. Their [facility] [address] [place] [address] PAIN MANAGEMENT CONSULTATION Name: LAINA COX Room #: REG CL M.R.#: [id number] Admission: 08/10/19 Attend Phys: Bailey ELAINE Pisano Discharge: Date of : 54 Report #: [id number] responsibilities include making followup visits in a timely fashion and to avoid abrupt discontinuation of medication usage. Their responsibilities further include bringing their medications (bottles from the pharmacy with residual pills) to the visit for possible confirmation of pill counts and the patient understands it is their responsibility to submit to random drug screens to ensure both that the medications prescribed are present, and that no other controlled substances are present. All prescriptions provided today were generated electronically. PLAN: 1. We discussed treatment options with the patient today. The patient finds his morphine and oxycodone very beneficial in controlling his pain. We will refill them for 30 mg of MS Contin, #60, for today for an 8-week release and oxycodone 7.5/325, #60, for today for an 8-week release. This places him at 82 morphine mEq according to the CDC guidelines. 2. Script given for meloxicam 15 mg, #30, with 2 additional refills, and Ambien 5 mg, #30, with 1 additional refill that he takes very sparingly when he has difficulty sleeping. 3. The patient tells me he is trying to wean off caffeine, but he continues to experience headaches and having a hard time doing this. We encouraged him to try half caffeinated and half decaf for a while to slowly wean off his caffeine. He informs that he will try that since he has had a rough week without his caffeine. 4. The patient seen in collaboration with Dr. Roberto Carlos De León who is available by telephone today and discussed this case previously with him, and Dr. Warren Miraomntes also collaborated care. <ELECTRONICALLY SIGNED> By: Bailey Pisano 08/15/19 0911 [id number] Bailey Pisano /nt
== END ==
LOC: PAIN 07:48
DX: M17.0 Bilateral primary osteoarthritis of knee (principal); M47.816 Spondylosis without myelopathy or radiculopathy, lumbar region; Z79.891 Long term (current) use of opiate analgesic; Z88.8 Allergy status to other drugs, medicaments and biological substances; Z79.899 Other long term (current) drug therapy

== ENCOUNTER → 2019-10-30 | Outpatient (CLI) | payer OTHER ==
[~2019-10-30] VITALS: Ht 172.7 cm; Wt 103.0 kg
[~2019-10-30] MED LIST changes: +OXYCODONE-APAP1 TAB PO; +TYLENOL PM EX-1 EACH PO
[2019-10-30 08:38] VITALS: BP 140/79
--- NOTE | 2019-10-30 08:51 | NUR ---
Pain Clinic Assessment: 1. History of Osteoarthritis: Left Lower Extremity Right Lower Extremity KNEES History of Rheumatoid Arthritis: Not Applicable 2. Height: 5 ft. 8 in. 172.7 cm. Weight: 227.0 lb. oz. 102.967 kg. Patient's BMI: 34.5 3. Vital Signs: BP: 140/79 Pulse: 80 Resp: 16 Temp: 02 Sat: 97 ECG Mon: 4. Pain Intensity: 7 5. Fall Risk: Dizziness: N Needs help standing or walking: N Fallen in the last 3 months: N Fall risk comments: 6. Patient on Blood Thinner: None 7. History of Hypertension: Y 8. Opioid Therapy greater than 6 weeks: Y Opiate Contract Signed: 05/14/16 9. Risk Assessment Tool Provided: LOW RISK 1 10. Functional Assessment Tool: 11. Recreational Drug Use: Never Drug Type: Tobacco Use: Former Smoker Tobacco Type: Cigarettes Amount or Packs/day: 2 ppd How Many Years: 30 Alcohol Use: Yes Frequency: Special Occasions Quant: alyx
--- NOTE | 2019-10-31 07:56 | HPC ---
[facility] [address] [place] [address] PAIN MANAGEMENT CONSULTATION Name: LAINA COX [facility] #: [facility] [id number] Admission: 10/30/19 Attend Phys: Bailey Pisano Discharge: Date of : 54 Report #: [id number] THIS REPORT FOR: //name// CC: Bailey York MD DATE OF SERVICE: 10/30/2019 CHIEF COMPLAINT: Bilateral knee pain with osteoarthritis. HISTORY OF PRESENT ILLNESS: This is a very pleasant 69-year-old gentleman who returns to the pain clinic today for management of his bilateral knee pain. He reports today that his pain score is 7/10. Most of his pain is located in his right knee today. He said over the past 2 weeks, it has gotten significantly worse again. He is wearing a brace on this right knee today. He can pinpoint most of his pain in the inner aspect of his knee. He reports it is worse when sitting still, or sleeping at night. He feels that walking and being active are better, which is the opposite of his usual exacerbation of pain. He does report he is having left knee pain as well and low back pain, though the right knee is more significant today. He is rating a pain score of 7/10. He feels that the oxycodone and MS Contin are beneficial, but feels that he needs to make an appointment for another injection in his knees. Today he would like refills of his medication. He denies any problems with daytime somnolence or constipation. He feels that is controlled with gwow-dlw-agekhah medicines as well as diet. ALLERGIES: KEFLEX AND PLAVIX. CURRENT MEDICATIONS: Flomax, meloxicam, Ambien, MS Contin 30 mg b.i.d., oxycodone 7.5/325 p.r.n., gabapentin 100 mg 3 times a day, Glucotrol, Lipitor, Flomax, senna, glucosamine chondroitin, and aspirin. PQRS: 1. He has osteoarthritis in his lower extremities and most significantly knees. Denies any rheumatoid arthritis. 2. Height is 5 feet 8 inches, weight is 227, BMI is 34. 3. Vital signs 140/79, pulse is 80, respirations 16, oxygen sat is 97. 4. Pain score 7/10. 5. Denies dizziness, does not need help walking, has not fallen in the last 3 months. 6. The patient is not on a blood thinner, does take medicines for hypertension and recently increased this medicine. 7. Opioid therapy is greater than 6 weeks; therefore, an opioid signed contract is on the chart. Risk assessment is low. Functional assessment is . [address] [address] PAIN MANAGEMENT CONSULTATION Name: BROOKELAINA BENITEZ Room #: REG [facility] [id number] Admission: 10/30/19 Attend Phys: Bailey Pisano Discharge: Date of : 54 Report #: [id number] 8. Recreational drug use, he denies. He is a former smoker and occasionally drinks alcohol. According to the prescription monitoring system, the patient is due to fill his medications later this week. He fills in a timely fashion. According to the CDC guidelines, his morphine mEq is 82 per day. There is a recent drug screen on the chart that is appropriate as well. PHYSICAL EXAMINATION: GENERAL: This is a pleasant 69-year-old gentleman who appears his stated age, placing his current pain score at 7/10 today. His affect is appropriate. HEENT: Normocephalic, atraumatic. Extraocular eye muscles are intact. MUSCULOSKELETAL: Pain in bilateral knees, right greater than left in the lower aspect of his right knee. Increased tenderness today with sitting still. Straight leg raising is positive in his knees. He has tenderness. No swelling or no effusion noted in his knees. He is wearing a brace on the right knee today. He has low back lumbosacral tenderness. He moves from the sitting to standing position without difficulty. He walks with an antalgic gait. IMPRESSION: 1. Osteoarthritis of his bilateral knees. 2. Chronic low back pain with spondylosis. 3. Management of high risk medications under terms of written opioid agreement. We reviewed the fact that opiate medications are being used to provide analgesia adequate to support activities of daily living, not attempting to achieve a specific pain score on the 0-10 Visual Analog Scale. The current opiate medications are providing sufficient analgesia to allow the patient to participate in activities of daily living. The patient is not exhibiting any aberrant behavior suggestive of drug diversion. The patient is not having any adverse reactions to medications. The patient is not suffering from daytime somnolence or mental acuity changes. The patient is managing opiate-induced constipation with appropriate zsbr-deg-bcfizhb agents and dietary considerations. The patient was counseled on concern for caution with operating a motor vehicle while using opiate medications. PLAN: 1. We discussed treatment options with the patient today. The patient's last knee injection was in June. I think it is beneficial for him to schedule another injection. He feels that he is not able to do that this month with too many doctors' appointments and missing work. He will call for November appointment. He does find these beneficial and it did help decrease his pain for several months. His right knee increased in pain, just the last 2 weeks. 2. We will refill his MS Contin 30 mg b.i.d., #60 and oxycodone 7.5/325, #60. These were refilled for a 3-month supply sent to the [facility]. [facility] [address] [place] [address] PAIN MANAGEMENT CONSULTATION Name: LAINA COX Room #: REG RAYNA Rick#: [id number] Admission: 10/30/19 Attend Phys: Bailey Pisano Discharge: Date of : 54 Report #: [id number] 3. I will refill the meloxicam 15 mg, #30 with 2 additional refills. The patient is not having any GI upset from these medications. 4. The patient is seen in collaboration with Dr. Roberto Carlos De León. The patient will call for an appointment for November. <ELECTRONICALLY SIGNED> By: Bailey Pisano 10/31/19 0756 [id number] Bailey Pisano /nt
== END ==
LOC: PAIN 06:57
DX: M17.0 Bilateral primary osteoarthritis of knee (principal); M47.816 Spondylosis without myelopathy or radiculopathy, lumbar region; Z79.891 Long term (current) use of opiate analgesic

== ENCOUNTER → 2019-11-16 | Outpatient (CLI) | payer OTHER ==
[~2019-11-16] VITALS: Ht 172.7 cm; Wt 103.5 kg
--- NOTE | ~2019-11-16 | HPC ---
[facility] [address] [place] [address] PAIN MANAGEMENT CONSULTATION Name: LAINA COX Room #: REG CL MRomario.#: [id number] Admission: 11/16/19 Attend Phys: Roberto Carlos De León MD Discharge: Date of : 54 Report #: [id number] THIS REPORT FOR: //name// CC: Roberto Carlos York MD DATE OF SERVICE: 11/16/2019 REASON FOR VISIT: Followup visit for severe bilateral knee pain, chronic degenerative osteoarthritis. SUBJECTIVE: The patient is in the pain clinic today for bilateral knee injections. I performed these for him off and on over the course of many years. Generally receiving no more than 3-4 injections a year. They provide substantial pain relief and allow him to ambulate with much less pain. I have talked with him on each visit about the possibility of seeing an orthopedic surgeon in consultation for consideration of a knee replacement. At this time, he is not interested in that elective procedure. He remains on opioid medication much lower than his prior use. He was previously above 200 morphine milligram equivalents per day and is now down to roughly 80. He uses MS Contin 30 mg b.i.d. and oxycodone 7.5/325 one or two tablets a day for breakthrough pain, prescribed for him under terms of strict opioid agreement. He carefully manages his medication. He was most recently seen in the pain clinic by nurse practitioner, Bailey Pisano and I saw him today on that visit as well. Please review to the medication issues addressed at that visit. PQRS is unchanged from the visit of 2 weeks ago. PHYSICAL EXAMINATION: Also unchanged from prior visit. IMPRESSION: Osteoarthritis, bilateral knees. PROCEDURE: Bilateral knee injection under fluoroscopic guidance. After informed consent, he was taken to the fluoroscopic suite where he was placed in the supine position. We began on the right. Skin was prepped with ChloraPrep and using a medial approach into the capsule and subpatellar location. After negative aspiration, I injected a total of 4 mL of 0.5% bupivacaine mixed with 40 mg of triamcinolone. Needle was removed. We then moved to the left knee and the procedure was performed in identical fashion on that side. There were no complications. [address] [address] PAIN MANAGEMENT CONSULTATION Name: LAINA COX [id number] Admission: 11/16/19 Attend Phys: Roberto Carlos De León MD Discharge: Date of : 54 Report #: [id number] He was observed in recovery room for a short time and discharged. I did renew Ambien at a very low dose 5 mg at bedtime, which he takes intermittently for sleep. He has had no untoward side effects from this medication use properly. We discussed the importance of using these sedating medications in a very strict manner, which has been shown to be helpful and not exceeding are prescribed. Follow up as needed. By: [id number] Roberto Carlos De León MD /miguel
[2019-11-16 14:29] VITALS: BP 150/94
--- NOTE | 2019-11-16 14:42 | NUR ---
Pain Clinic Assessment: 1. History of Osteoarthritis: Left Lower Extremity Right Lower Extremity KNEES History of Rheumatoid Arthritis: Not Applicable 2. Height: 5 ft. 8 in. 172.7 cm. Weight: 228.2 lb. oz. 103.511 kg. Patient's BMI: 34.7 3. Vital Signs: BP: 150/94 Pulse: 89 Resp: 16 Temp: 02 Sat: 97 ECG Mon: 4. Pain Intensity: 7 5. Fall Risk: Dizziness: N Needs help standing or walking: N Fallen in the last 3 months: N Fall risk comments: 6. Patient on Blood Thinner: None 7. History of Hypertension: Y 8. Opioid Therapy greater than 6 weeks: Y Opiate Contract Signed: 05/14/16 9. Risk Assessment Tool Provided: LOW RISK 1 10. Functional Assessment Tool: 11. Recreational Drug Use: Never Drug Type: Tobacco Use: Former Smoker Tobacco Type: Amount or Packs/day: How Many Years: Alcohol Use: Yes Frequency: Quant:
== END | disposition home or self-care (01) ==
LOC: PAIN 06:57
DX: M25.561 Pain in right knee (principal); M25.562 Pain in left knee; M17.0 Bilateral primary osteoarthritis of knee; Z98.890 Other specified postprocedural states; Z79.891 Long term (current) use of opiate analgesic; Z87.891 Personal history of nicotine dependence; Z88.8 Allergy status to other drugs, medicaments and biological substances; Z79.82 Long term (current) use of aspirin; Z79.899 Other long term (current) drug therapy

== ENCOUNTER → 2020-01-25 | Outpatient (CLI) | payer OTHER ==
[~2020-01-25] VITALS: Ht 172.7 cm; Wt 101.5 kg
[2020-01-25 08:37] VITALS: BP 128/77
--- NOTE | 2020-01-25 08:42 | NUR ---
Pain Clinic Assessment: 1. 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 Height: 5 ft. 8 in. 172.7 cm. Weight: 223.8 lb. oz. 101.515 kg. Patient's BMI: 34.0 3. Vital Signs: BP: 128/77 Pulse: 83 Resp: 14 Temp: 02 Sat: 97 ECG Mon: 4. Pain Intensity: 5 5. Fall Risk: Dizziness: N Needs help standing or walking: N Fallen in the last 3 months: N Fall risk comments: 6. Patient on Blood Thinner: None 7. History of Hypertension: Y 8. Opioid Therapy greater than 6 weeks: Y Opiate Contract Signed: 05/14/16 9. Risk Assessment Tool Provided: LOW RISK 3 10. Functional Assessment Tool: 11. Recreational Drug Use: Never Drug Type: Tobacco Use: Former Smoker Tobacco Type: Amount or Packs/day: How Many Years: Alcohol Use: Yes Frequency: Monthly Quant:
--- NOTE | 2020-01-26 10:10 | HPC ---
[facility] [address] [address] PAIN MANAGEMENT CONSULTATION Name: LAINA COX Room #: REG [facility].#: [id number] Admission: 01/25/20 Attend Phys: Bailey Pisano Discharge: Date of : 54 Report #: [id number] THIS REPORT FOR: cc: Timothy York,Timothy Tatum,Bailey HENRY ~ CC: Bailey York DATE OF SERVICE: 01/25/2020 CHIEF COMPLAINT: Bilateral knee pain, chronic degenerative osteoarthritis. HISTORY OF PRESENT ILLNESS: This is a very pleasant 69-year-old gentleman who returns to the pain clinic today for refill of his medications. He uses his medications to help his bilateral knee pain and his lower back pain. Today, he is rating his pain score at 5/10. He feels that it is slightly increased due to weather changes. He continues to work part-time and be as active as he is able. He feels that activity does decrease his pain. If he sits too long, he becomes very stiff and his knees hurt worse. He does use his medications appropriately as well as using cold and distraction techniques. He denies any problems with constipation, especially since he has had a lower dose of opioids than in the past and does not have any daytime sleepiness. The patient reports he is starting the process to have his cataracts removed in both eyes. He has been busy with appointments with the eye surgeon as well as a followup appointment for a stress test that showed some decreased blood flow. He reports these appointments will be next week. ALLERGIES: KEFLEX and PLAVIX. CURRENT LIST OF MEDICATIONS: Ambien, oxycodone 7.5/325, morphine sulfate 30 mg b.i.d., meloxicam 15 mg, Tylenol Extra Strength, gabapentin, glipizide, atorvastatin, Flomax, senna, glucosamine chondroitin and aspirin. PQRS: 1. He has osteoarthritic changes in his bilateral lower extremities, especially his knees. Denies any rheumatoid arthritis. 2. Height is 5 feet 8 inches, weight is 223, BMI is 34. Vital signs; 128/77, pulse is 83, respirations 14, oxygen sat is 97. Pain score is 5/10. Denies dizziness, does not need help walking or standing, has not fallen in the last 3 months. The patient is not on any blood thinners, but does take medicine for hypertension. His opioid therapy is greater than 6 weeks; therefore, an opioid signed contract is on the chart. Risk assessment is low. Functional assessment . 3. Recreational drug use, he denies. [place] [address] PAIN MANAGEMENT CONSULTATION Name: BROOKELAINA EMMANUEL Room #: REG [facility] Rick#: [id number] Admission: 01/25/20 Attend Phys: Bailey Pisano Discharge: Date of : 54 Report #: [id number] drinks alcohol. According to the prescription monitoring system, the patient is filling appropriately for his medications. He is due to fill those today. His morphine mEq is 82 per day at the maximum level of his prescriptions. The patient states some days he does only take one of his breakthrough pain pills. PHYSICAL EXAMINATION: GENERAL: This is alert and orientated, pleasant 69-year-old who appears his stated age, placing his current pain score at 5/10. HEENT: Normocephalic, atraumatic. Extraocular eye muscles are intact. Slight decreased vision, wearing glasses. MUSCULOSKELETAL: Pain is in bilateral knees, greater on the right than the left. He has increased tenderness bilaterally with sitting still. Straight leg raising is positive. No swelling and no effusion noted in his bilateral knees. He walks with an antalgic gait. He also has lumbosacral tenderness in his low back. IMPRESSION: 1. Osteoarthritis of his bilateral knees. 2. Chronic low back pain with spondylosis. 3. Management of high risk medications under terms of written opioid agreement. We reviewed the fact that opiate medications are being used to provide analgesia adequate to support activities of daily living, not attempting to achieve a specific pain score on the 0-10 Visual Analog Scale. The current opiate medications are providing sufficient analgesia to allow the patient to participate in activities of daily living. The patient is not exhibiting any aberrant behavior suggestive of drug diversion. The patient is not having any adverse reactions to medications. The patient is not suffering from daytime somnolence or mental acuity changes. The patient is managing opiate-induced constipation with appropriate kcsl-tuw-vbfftbi agents and dietary considerations. The patient was counseled on concern for caution with operating a motor vehicle while using opiate medications. A physical exam was performed and the patient's functional status was evaluated. All patients with back pain were advised against the bed rest greater than 4 days and were advised to return to normal activities. Pain score assessment was noted and the treatment plan was reviewed with the patient. All current medications, both prescribed and OTC were reviewed and reconciled on the electronic medical record. Tobacco screening was accomplished and smoking cessation was advised when indicated. BMI was noted and diet/exercise modification was recommended for all patients following outside normal parameters. I reviewed with the patient today their responsibilities to [address] [address] PAIN MANAGEMENT CONSULTATION Name: LAINA COX [id number] Admission: 01/25/20 Attend Phys: Bailey Pisano Discharge: Date of : 54 Report #: [id number] prescription medications, reviewed their responsibility to utilize medications only as prescribed by the physician. They are to seek and receive pain medications only from 1 physician group ( [facility]). They are to use 1 pharmacy and keep the clinic informed if they change pharmacies. Their responsibilities include making followup visits in a timely fashion and to avoid abrupt discontinuation of medication usage. Their responsibilities further include bringing their medications (bottles from the pharmacy with residual pills) to the visit for possible confirmation of pill counts and the patient understands it is their responsibility to submit to random drug screens to ensure both that the medications prescribed are present, and that no other controlled substances are present. All prescriptions provided today were generated electronically. PLAN: 1. We discussed treatment options with the patient today. The patient reports that the injections in his bilateral knees afforded him at least 50% relief. He feels that they continued to be slightly improved from his injections in November. He tries to hold off his injections until at least 6 months between injections. 2. The patient reports some days he is able to take less of his oxycodone breakthrough medicines, other days he is requiring more 60 pills last him a month. Today, we will refill his oxycodone 7.5/325, #60 for today 4-week and 8-week release. 3. We will refill his MS Contin 30 mg ER, #60 for 3 months as well as his meloxicam 15 mg, #30 with 2 additional refills. 4. The patient is seen in collaboration with Dr. Roberto Carlos De León today who did see the patient as well. <ELECTRONICALLY SIGNED> By: Bailey Pisano 01/26/20 1010 [id number] Bailey Pisano /nt
== END ==
LOC: PAIN 06:51
DX: M17.0 Bilateral primary osteoarthritis of knee (principal); G89.29 Other chronic pain; M47.816 Spondylosis without myelopathy or radiculopathy, lumbar region; Z88.8 Allergy status to other drugs, medicaments and biological substances; Z68.34 Body mass index [BMI] 34.0-34.9, adult; Z79.899 Other long term (current) drug therapy

== ENCOUNTER → 2020-04-15 | Outpatient (CLI) | payer OTHER ==
[~2020-04-15] VITALS: Ht 172.7 cm; Wt 101.3 kg
[2020-04-15 08:48] VITALS: BP 122/71
--- NOTE | 2020-04-15 09:07 | NUR ---
Pain Clinic Assessment: 1. 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 Height: 5 ft. 8 in. 172.7 cm. Weight: 223.4 lb. oz. 101.334 kg. Patient's BMI: 34.0 3. Vital Signs: BP: 122/71 Pulse: 78 Resp: 14 Temp: 02 Sat: 100 ECG Mon: 4. Pain Intensity: 5 5. Fall Risk: Dizziness: N Needs help standing or walking: N Fallen in the last 3 months: N Fall risk comments: 6. Patient on Blood Thinner: None 7. History of Hypertension: Y 8. Opioid Therapy greater than 6 weeks: Y Opiate Contract Signed: 05/14/16 9. Risk Assessment Tool Provided: LOW RISK 3 10. Functional Assessment Tool: 11. Recreational Drug Use: Never Drug Type: Tobacco Use: Former Smoker Tobacco Type: Amount or Packs/day: How Many Years: Alcohol Use: Yes Frequency: Quant:
--- NOTE | 2020-04-15 14:32 | HPC ---
[facility] [address] [address] PAIN MANAGEMENT CONSULTATION Name: LAINA COX Room #: REG [facility]..#: [id number] Admission: 04/15/20 Attend Phys: Bailey Pisano Discharge: Date of : 54 Report #: [id number] THIS REPORT FOR: cc: Timothy York Steven F. DO Hocker, Amanda CNS ~ CC: Bailey De León MD DATE OF SERVICE: 04/15/2020 CHIEF COMPLAINT: Bilateral knee pain, chronic degenerative osteoarthritis. HISTORY OF PRESENT ILLNESS: This is a very pleasant 69-year-old gentleman who returns to the pain clinic today for refill of his opioid medication that he uses to help treat his ongoing low back pain and bilateral knee pain. Today, he reports a pain score of 5/10, is an aching, sharp, burning feeling. He states that sitting still does increase his pain as well as being on his knees, but he feels that as long as he is working and being active that is beneficial. He continues to work part-time and enjoys it. 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 He believes he is more beneficial working part-time, keeping active that does decrease his pain. He tells me lately he has been having difficulty sleeping and does use the Ambien on an as needed basis. Today, he is requesting refills of his medications. The patient reports that daughter was tested positive for COVID. She does not live with him or near him. He is questioning taking meloxicam since she was told to stop her NSAIDs since she had COVID positive test. He is wondering about his medications. ALLERGIES: KEFLEX and PLAVIX. CURRENT LIST OF MEDICATIONS: Ambien 5 mg p.r.n., oxycodone 7.5/325 b.i.d. p.r.n., MS Contin 30 mg b.i.d., meloxicam 15 mg daily, Tylenol p.r.n., gabapentin, Glucotrol, Lipitor, Flomax, senna, glucosamine chondroitin and aspirin. PQRS: 1. He has arthritic changes in his lower extremities. Denies any rheumatoid arthritis. 2. Height is 5 feet 8 inches, weight is 223, BMI is 34. 3. Vital signs 122/71, pulse is 78, respirations 14, oxygen sat is 100%. 4. Pain score is 5/10. 5. Denies dizziness, does not need help walking or standing, has not fallen in the last 3 [place] [address] PAIN MANAGEMENT CONSULTATION Name: LANIA COX Room #: REG [facility].#: [id number] Admission: 04/15/20 Attend Phys: Bailey Pisano Discharge: Date of : 54 Report #: [id number] 6. The patient is not on any blood thinners. He does have a history of hypertension. 7. Opioid therapy is greater than 6 weeks; therefore, an opioid signed contract is on the chart. Risk assessment tool is low. Functional assessment . 8. Recreational drug use, he denies. He is a former smoker and occasionally drinks alcohol. According to the prescription monitoring system, the patient is filling appropriately. He filled last 03/21/2020 with no aberrant fills. According to the CDC guidelines, his morphine milliequivalent is 82 MMEs per day. We will check a random drug screen on this patient today. PHYSICAL EXAMINATION: GENERAL: He is alert and orientated, very pleasant 69-year-old well-developed, well-nourished gentleman, rating his pain score at 5/10 today. HEENT: Normocephalic, atraumatic. Extraocular eye muscles intact. He is wearing glasses. He does have a mask on. MUSCULOSKELETAL: Pain is located in bilateral knees, greater on the right than the left, which increases with ambulation. Straight leg raising is positive. No swelling noted. He walks with a slightly antalgic gait. He has tenderness in his lumbosacral region of his lumbar spine. IMPRESSION: 1. Osteoarthritis of bilateral knees. 2. Chronic low back pain with spondylosis. 3. Management of high risk medications under terms of written opioid agreement. We reviewed the fact that opiate medications are being used to provide analgesia adequate to support activities of daily living, not attempting to achieve a specific pain score on the 0-10 Visual Analog Scale. The current opiate medications are providing sufficient analgesia to allow the patient to participate in activities of daily living. The patient is not exhibiting any aberrant behavior suggestive of drug diversion. The patient is not having any adverse reactions to medications. The patient is not suffering from daytime somnolence or mental acuity changes. The patient is managing opiate-induced constipation with appropriate jhod-xgs-shjsugy agents and dietary considerations. The patient was counseled on concern for caution with operating a motor vehicle while using opiate medications. PLAN: 1. We discussed treatment options with the patient today. The patient feels that his medications are very beneficial. He would like refills of those today. We will send them electronically for MS Contin 30 mg, #60 for today, 4-week and 8-week release; oxycodone 7.5/325, #60 for 3 months. These will be sent electronically by Dr. Roberto Carlos De León. 2. We did discuss meloxicam and the COVID virus. It is according to the [facility] [address] [place] [address] PAIN MANAGEMENT CONSULTATION Name: LAINA COX Room #: REG [facility] Rick#: [id number] Admission: 04/15/20 Attend Phys: Bailey Pisano Discharge: Date of : 54 Report #: [id number] guidelines not to initiate therapy of anti-inflammatories during this outbreak. The patient has been stable on meloxicam for several years; therefore, we encouraged him to continue, but if he feels safer not continuing it, he may stop; but we will refill it today for him for 3 months. If patient does stop, it was explained to him that he may notice increase in his knee pain. 3. We will refill his Ambien 5 mg with one additional refill. The patient does take this on an as needed basis. 4. A urine drug screen was collected on this patient. The patient seen today in collaboration with Dr. Roberto Carlos De León, who did see the patient as well. <ELECTRONICALLY SIGNED> By: Bailey Pisano 04/15/20 1432 [id number] [id number] Bailey Pisano /nt
== END ==
LOC: PAIN 06:45
DX: M17.0 Bilateral primary osteoarthritis of knee (principal); T50.995A Adverse effect of other drugs, medicaments and biological substances, initial encounter; Z79.899 Other long term (current) drug therapy; Y92.89 Other specified places as the place of occurrence of the external cause

== ENCOUNTER → 2020-07-08 | Outpatient (CLI) | payer OTHER ==
[~2020-07-08] VITALS: Ht 172.7 cm; Wt 102.6 kg
[2020-07-08 08:22] VITALS: BP 125/77
--- NOTE | 2020-07-08 08:31 | NUR ---
Pain Clinic Assessment: 1. 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 Height: 5 ft. 8 in. 172.7 cm. Weight: 226.2 lb. oz. 102.604 kg. Patient's BMI: 34.4 3. Vital Signs: BP: 125/77 Pulse: 76 Resp: 16 Temp: 02 Sat: 98 ECG Mon: 4. Pain Intensity: 4 5. Fall Risk: Dizziness: N Needs help standing or walking: N Fallen in the last 3 months: N Fall risk comments: 6. Patient on Blood Thinner: None 7. History of Hypertension: Y 8. Opioid Therapy greater than 6 weeks: Y Opiate Contract Signed: 05/14/16 9. Risk Assessment Tool Provided: LOW RISK 3 10. Functional Assessment Tool: 11. Recreational Drug Use: Never Drug Type: Tobacco Use: Former Smoker Tobacco Type: Amount or Packs/day: How Many Years: Alcohol Use: Yes Frequency: Monthly Quant: 1
--- NOTE | 2020-07-08 12:26 | HPC ---
[facility] [address] [address] PAIN MANAGEMENT CONSULTATION Name: LAINA COX Room #: REG [facility].#: [id number] Admission: 07/08/20 Attend Phys: Bailey Pisano Discharge: Date of : 54 Report #: [id number] THIS REPORT FOR: cc: Timothy York Steven F. DO Hocker, Amanda CNS ~ CC: Roberto Carlos De León MD DATE OF SERVICE: 07/08/2020 CHIEF COMPLAINT: Bilateral knee pain, chronic degenerative osteoarthritis. HISTORY OF PRESENT ILLNESS: This is a very pleasant 70-year-old gentleman who returns to the pain clinic today for a refill of his medications that he uses to help treat his ongoing osteoarthritis and low back pain. Today, he is reporting a pain score of 4/10, mostly located in his low back and bilateral knees. He states that being up on his knees and walking are more problematic. He is now waking up at night with knee pain. He is wondering about having an injection from Dr. Roberto Carlos eD León. His last steroid injection was in November. He reports that he had at least 6 months of relief where his pain score was diminished in his knees in the last month that has escalated. He would like to scheduled in July if possible. He believes that the medications are beneficial as well as trying to be active and using ice on his knees. He denies any problems with constipation as long as he eats a well-balanced diet and drinks plenty of liquids. The patient does report he had bilateral cataract surgery on his eyes in May, the last procedure was 5 weeks ago. He reports he is able to see much more clear now and only uses glasses for reading. ALLERGIES: KEFLEX and PLAVIX. CURRENT LIST OF MEDICATIONS: Ambien 5 mg at bedtime, oxycodone 7.5/325 b.i.d., morphine sulfate 30 mg b.i.d., meloxicam, Tylenol, gabapentin, Glucotrol, Lipitor, Flomax, senna, glucosamine chondroitin and aspirin. PQRS: 1. He has arthritic changes in his knees bilaterally. Denies any rheumatoid arthritis. 2. Height is 5 feet 8 inches, weight is 226, BMI is 34. 3. Vital signs: Blood pressure 125/77, pulse is 76, respirations 16, oxygen sat is 98, pain score is 4/10. 4. Fall risk. Denies dizziness, does not need help walking or standing, has not fallen in the last 3 months. The patient is not on any blood thinners, but does take medicine for hypertension. Opioid therapy is greater than 6 weeks; therefore, an opioid signed contract is on the chart. Risk assessment is low. [address] [address] PAIN MANAGEMENT CONSULTATION Name: BROOKELAINA EMMANUEL Room #: REG [facility] Rick#: [id number] Admission: 07/08/20 Attend Phys: Bailey Pisano Discharge: Date of : 54 Report #: [id number] Functional assessment . 5. Recreational drug use, he denies. He is a former smoker and occasionally drinks alcohol. According to the prescription monitoring system, his morphine milliequivalent is 82 MMEs. He is filling appropriately and on time, there is a drug screen in his chart that is appropriate for his medications as well. PHYSICAL EXAMINATION: GENERAL: This is alert and orientated, well-developed, well-nourished 70-year-old gentleman who appears his stated age, placing his current pain score at 4/10. HEENT: Normocephalic, atraumatic. Extraocular eye muscles are intact. He is wearing glasses and a mask. MUSCULOSKELETAL: Tenderness is in bilateral knees, greater on the right than the left. Pain increases with ambulation. He has a slightly antalgic gait. No swelling noted. He does have tenderness in the lumbosacral region of his spine as well. IMPRESSION: 1. Osteoarthritis of bilateral knees. 2. Chronic low back pain with spondylosis. 3. Management of high risk medications under terms of written opioid agreement. We reviewed the fact that opiate medications are being used to provide analgesia adequate to support activities of daily living, not attempting to achieve a specific pain score on the 0-10 Visual Analog Scale. The current opiate medications are providing sufficient analgesia to allow the patient to participate in activities of daily living. The patient is not exhibiting any aberrant behavior suggestive of drug diversion. The patient is not having any adverse reactions to medications. The patient is not suffering from daytime somnolence or mental acuity changes. The patient is managing opiate-induced constipation with appropriate hcgr-gwz-rksdcmf agents and dietary considerations. The patient was counseled on concern for caution with operating a motor vehicle while using opiate medications. PLAN: 1. We discussed treatment options with the patient today. We discussed his medications. He finds those beneficial on helping reduce his pain with minimal side effects of constipation and denies any daytime somnolence. I will have Dr. Roberto Carlos De León send his MS Contin 30 mg b.i.d., #60 for today for 4-week and 8-week release as well as his oxycodone 7.5/325, #[address] De León will send his Ambien 5 mg 1 at bedtime, quantity 30 with one additional fill. He takes these as needed for insomnia at nighttime and I will send his meloxicam 15 mg every day, #30 with 5 refills. 2. We did discuss occasional use of Voltaren gel to his knees on a very painful [facility] [address] [place] [address] PAIN MANAGEMENT CONSULTATION Name: LAINA COX Room #: REG [facility] M.R.#: [id number] Admission: 07/08/20 Attend Phys: Bailey Pisano Discharge: Date of : 54 Report #: [id number] day, encouraged him that he is taking the oral nonsteroidal anti-inflammatory, so he should use this sparingly. 3. We did discuss injections in his knees. 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 Typically, we would wait 8 weeks post-surgery, it has been 5. He is going to call there today and then call and try and schedule an appointment in July with Dr. De León. 4. The patient is seen in collaboration with Dr. Roberto Carlos De León who did see him as well today. <ELECTRONICALLY SIGNED> By: Bailey Pisano 07/08/20 1226 [id number] Bailey Pisano /nt
== END ==
LOC: PAIN 06:53
PROVIDERS: ATTEND Clinical Nurse Specialist Adult Health
DX: M17.0 Bilateral primary osteoarthritis of knee (principal); M47.816 Spondylosis without myelopathy or radiculopathy, lumbar region; G89.29 Other chronic pain; Z79.891 Long term (current) use of opiate analgesic

== ENCOUNTER → 2020-08-15 | Outpatient (CLI) | payer OTHER ==
[~2020-08-15] VITALS: Ht 175.3 cm; Wt 102.1 kg
[~2020-08-15] MED LIST changes: +SUPER THERAVIT1 EACH PO
--- NOTE | ~2020-08-15 | HPC ---
[facility] [place] [address] PAIN MANAGEMENT CONSULTATION Name: LAINA COX [id number] Admission: 08/15/20 Attend Phys: Roberto Carlos De León MD Discharge: Date of : 54 Report #: [id number] THIS REPORT FOR: cc: Timothy York,Roberto Carlos Gill MD ~ CC: Roberto Carlos York DATE OF SERVICE: 08/15/2020 Followup visit for bilateral osteoarthritis of the knee. The patient was seen just recently in the clinic for medication management. He has been a longstanding opioid agreement for chronic intractable pain. His primary pain generator today are his knees. He has responded very favorably to intermittent fluoroscopically guided knee injections. His last injection was nearly 9 months ago. Pain intensity has been increasing and he scores it as a 5/10 today and he would like to repeat the injection. He is able to manage much more effectively with less pain. Activity improves and he is able to utilize his medication more effectively and lower doses. PQRS: Positive for osteoarthritis. BMI is 33.2. Vital signs today, blood pressure 127/74, heart rate 82, respirations 16, O2 sat 98, pain intensity 5. He is not a fall risk, is not on a blood thinner. Hypertension is treated with medications reviewed on the electronic medical record today. He is on an opioid agreement. Functional assessment score 34. Denies use of tobacco, drinks alcohol socially. IMPRESSION: Bilateral osteoarthritis of the knee. PROCEDURE: Bilateral knee injections under fluoroscopic guidance. PROCEDURE: Skin was prepped with ChloraPrep. Skin anesthetized first on the left. A 25-gauge needle 2-inch was advanced gently into the knee joint. After negative aspiration, I injected 0.25 mL followed by a second 0.25 mL to demonstrate an arthrogram. This was followed then by 3 mL of 0.5% bupivacaine mixed with 40 mg of triamcinolone. Needle was removed. The C-arm was moved to the right. Skin was prepped again with ChloraPrep. Skin anesthetized with 1% lidocaine. A 25-gauge 2-inch needle advanced into the joint space and an arthrogram obtained with 0.25 mL of Omnipaque. It was followed by an additional 3 mL of 0.5% bupivacaine mixed with 40 mg triamcinolone. He tolerated the procedure well. There were no complications. [address] [address] PAIN MANAGEMENT CONSULTATION Name: LAINA COX [id number] Admission: 08/15/20 Attend Phys: Roberto Carlos De León MD Discharge: Date of : 54 Report #: [id number] He was observed in recovery room and discharge from recovery room in good condition. A followup visit planned as needed for medication management. By: [id number] Roberto Carlos De León MD /nt
[2020-08-15 12:39] VITALS: BP 127/74
--- NOTE | 2020-08-15 12:45 | NUR ---
Pain Clinic Assessment: 1. 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 Height: 5 ft. 9 in. 175.3 cm. Weight: 225.0 lb. oz. 102.060 kg. Patient's BMI: 33.2 3. Vital Signs: BP: 127/74 Pulse: 82 Resp: 16 Temp: 02 Sat: 98 ECG Mon: 4. Pain Intensity: 5 5. Fall Risk: Dizziness: N Needs help standing or walking: N Fallen in the last 3 months: N Fall risk comments: 6. Patient on Blood Thinner: None 7. History of Hypertension: Y 8. Opioid Therapy greater than 6 weeks: Y Opiate Contract Signed: 05/14/16 9. Risk Assessment Tool Provided: LOW RISK 3 10. Functional Assessment Tool: 11. Recreational Drug Use: Never Drug Type: Tobacco Use: Former Smoker Tobacco Type: Amount or Packs/day: How Many Years: Alcohol Use: Yes Frequency: Monthly Quant: 2
== END | disposition home or self-care (01) ==
LOC: PAIN 06:59
PROVIDERS: ATTEND Anesthesiology Pain Medicine
DX: M17.0 Bilateral primary osteoarthritis of knee (principal); G89.29 Other chronic pain; Z98.890 Other specified postprocedural states; Z79.899 Other long term (current) drug therapy; Z87.891 Personal history of nicotine dependence; Z79.82 Long term (current) use of aspirin; Z88.8 Allergy status to other drugs, medicaments and biological substances

== ENCOUNTER → 2020-10-03 | Outpatient (CLI) | payer OTHER ==
[~2020-10-03] VITALS: Ht 175.3 cm; Wt 100.7 kg
[~2020-10-03] MED LIST changes: +PRILOSEC OTC20 MG PO
[2020-10-03 09:33] VITALS: BP 151/90
--- NOTE | 2020-10-03 09:38 | NUR ---
Pain Clinic Assessment: 1. 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 Height: 5 ft. 9 in. 175.3 cm. Weight: 222.0 lb. oz. 100.699 kg. Patient's BMI: 32.8 3. Vital Signs: BP: 151/90 Pulse: 81 Resp: 18 Temp: 02 Sat: 97 ECG Mon: 4. Pain Intensity: 4 5. Fall Risk: Dizziness: N Needs help standing or walking: N Fallen in the last 3 months: N Fall risk comments: 6. Patient on Blood Thinner: None 7. History of Hypertension: Y 8. Opioid Therapy greater than 6 weeks: Y Opiate Contract Signed: 05/14/16 9. Risk Assessment Tool Provided: LOW RISK 3 10. Functional Assessment Tool: 11. Recreational Drug Use: Never Drug Type: Tobacco Use: Former Smoker Tobacco Type: Amount or Packs/day: How Many Years: Alcohol Use: Yes Frequency: Quant:
--- NOTE | 2020-10-07 15:55 | HPC ---
[facility] [address] [place] [address] PAIN MANAGEMENT CONSULTATION Name: LAINA COX Room #: REG [facility].#: [id number] Admission: 10/03/20 Attend Phys: Roberto Carlos De León MD Discharge: Date of : 54 Report #: [id number] THIS REPORT FOR: cc: Timothy York,Bailey Dove MANAGER E [employer]ERCE ~ CC: Roberto Carlos De León DATE OF SERVICE: 10/03/2020 CHIEF COMPLAINT: Bilateral osteoarthritis of his knees. HISTORY OF PRESENT ILLNESS: This is a pleasant 70-year-old gentleman who is returning to the pain clinic for a refill of his opioid medications that he used to help treat his bilateral knee pain. He did undergo a steroid injection, 08/15, by Dr. Roberto Carlos De León and he reports that, that was very beneficial reducing his pain at least 80%. He does like to space those injections out and believes that he will be able to get by with his medications until the end of November or beginning of December before he would need another injection. The patient is reporting a pain score of 4/10 today in his low back and knees. It is an aching discomfort that is worse with being active, walking and bending on his knees. Overall, he feels the medications are beneficial with minimal side effects. He does also use ice and finds that helpful. ALLERGIES: KEFLEX AND PLAVIX. CURRENT LIST OF MEDICATIONS: Omeprazole, multivitamin, Ambien, oxycodone 7.5/325 b.i.d. p.r.n., morphine sulfate 30 mg b.i.d., Tylenol Extra Strength, gabapentin, Glucotrol, Lipitor, Flomax, senna, glucosamine chondroitin and aspirin. PQRS: 1. He has osteoarthritic changes in his lower extremities. Denies any rheumatoid arthritis. 2. Height is 5 feet 9 inches, weight is 222, BMI is 32. Vital signs; 151/90, pulse is 81, respirations 18, oxygen sat is 97%. Pain score is 4/10. 3. Fall risk. Denies dizziness. Does not need help walking or standing. Has not fallen in the last 3 months. The patient is not on any blood thinners but does take medicine for hypertension. Opioid therapy is greater than 6 weeks; therefore, an opioid signed contract is on the chart. Risk assessment is low. Functional assessment is 34/70. 4. Recreational drug use, he denies. He is a former smoker and does drink alcohol occasionally. According to the prescription monitoring system, the patient is filling appropriately in a timely fashion. He is due to fill his medications today. [address] [address] PAIN MANAGEMENT CONSULTATION Name: LAINA COX Room #: REG CL M.R.#: [id number] Admission: 10/03/20 Attend Phys: Roberto Carlos De León MD Discharge: Date of : 54 Report #: [id number] His morphine mEq is 82 MME. PHYSICAL EXAMINATION: GENERAL: This is an alert and orientated, very well-developed, well-nourished 70-year-old gentleman who appears his stated age, placing his current pain score at 4/10 today. HEENT: Normocephalic, atraumatic. Extraocular eye muscles are intact. He is wearing a mask. His speech is fluent. MUSCULOSKELETAL: He has tenderness in his bilateral knees with no edema noted. He has an antalgic gait. Tenderness in the lumbosacral region of his spine as well in the paraspinal musculature. We reviewed the fact that opiate medications are being used to provide analgesia adequate to support activities of daily living, not attempting to achieve a specific pain score on the 0-10 Visual Analog Scale. The current opiate medications are providing sufficient analgesia to allow the patient to participate in activities of daily living. The patient is not exhibiting any aberrant behavior suggestive of drug diversion. The patient is not having any adverse reactions to medications. The patient is not suffering from daytime somnolence or mental acuity changes. The patient is managing opiate-induced constipation with appropriate [id number] agents and dietary considerations. The patient was counseled on concern for caution with operating a motor vehicle while using opiate medications. PLAN: 1. We discussed treatment options with the patient today. The patient is needing a refill of his medications, which he finds very beneficial. These will be sent electronically for 3 months of his oxycodone 7.5/325, #60 and morphine sulfate 30 mg b.i.d., #60 as well as Ambien that he does take on an as needed basis. 2. The patient does report he recently had an EGD and started taking Prilosec. I explained to him that he is on meloxicam, which may cause some irritation to his stomach and to make sure he does take that with plenty of food and drink plenty of liquids with his pills due to the findings of some erosion in his esophagus. The patient reports he is having a repeat EGD in 4 months. 3. The patient found his bilateral knee injections very beneficial and will possibly schedule those at the end of November or early December. He is aware that Dr. Roberto Carlos De León will be out of the office in October. If for some reason he is delayed in coming back, I explained to him that Dr. Warren Miramontes could perform that injection for him if needed. 4. The patient is seen in collaboration today with Dr. Roberto Carlos De León. <ELECTRONICALLY SIGNED> By: Bailey Pisano 10/07/20 [id number] Bailey Pisano /nt
== END ==
LOC: PAIN 09:12
PROVIDERS: ATTEND Anesthesiology Pain Medicine
DX: M17.0 Bilateral primary osteoarthritis of knee (principal); I10 Essential (primary) hypertension; Z79.899 Other long term (current) drug therapy; Z79.891 Long term (current) use of opiate analgesic

== ENCOUNTER → 2021-01-23 | Outpatient (CLI) | payer OTHER ==
[~2021-01-23] VITALS: Ht 175.3 cm; Wt 85.9 kg
[2021-01-23 09:30] VITALS: BP 150/78
--- NOTE | 2021-01-23 09:48 | NUR ---
Pain Clinic Assessment: 1. 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 Height: 5 ft. 9 in. 175.3 cm. Weight: 189.4 lb. oz. 85.911 kg. Patient's BMI: 28.0 3. Vital Signs: BP: 150/78 Pulse: 106 Resp: 14 Temp: 02 Sat: 96 ECG Mon: 4. Pain Intensity: 4 5. Fall Risk: Dizziness: N Needs help standing or walking: Y Fallen in the last 3 months: N Fall risk comments: 6. Patient on Blood Thinner: None 7. History of Hypertension: Y 8. Opioid Therapy greater than 6 weeks: Y Opiate Contract Signed: 05/14/16 9. Risk Assessment Tool Provided: LOW RISK 3 10. Functional Assessment Tool: 11. Recreational Drug Use: Never Drug Type: Tobacco Use: Former Smoker Tobacco Type: Amount or Packs/day: How Many Years: Alcohol Use: No Frequency: Quant:
--- NOTE | 2021-01-23 12:57 | HPC ---
[facility] [place] [address] PAIN MANAGEMENT CONSULTATION Name: LAINA COX Room #: REG [facility].#: [id number] Admission: 01/23/21 Attend Phys: Bailey Pisano Discharge: Date of : 54 Report #: [id number] THIS REPORT FOR: cc: Timothy York Steven F. DO Hocker,Bailey Herrera DATE OF SERVICE: 01/23/2021 CHIEF COMPLAINT: Bilateral osteoarthritis of his knees. HISTORY OF PRESENT ILLNESS: This is a very pleasant gentleman who returns with his today to discuss pain treatment. The patient was recently hospitalized from 10/31 where he was taken by ambulance to [facility] for COVID. He was having significant shortness of breath with rapid onset that day. He had had a previous negative COVID test 3 days earlier, but it was determined that he did have COVID. He was hospitalized until 12/16 where he went to rehab at [facility] for a month and was recently discharged last week. The patient reports during his hospitalization, he did have a heart attack and had pneumonia, then placed a feeding tube, which now he has removed. He has been in physical therapy and is slowly recovering. Today, he is not in need of any opioid medications that we provide for him due to the fact that he was hospitalized for so long that he is wondering about having bilateral knee injection performed for his osteoarthritic knees. Today, the patient reports his knees right being worse than the left, are achy at times. He feels with the physical therapy he is doing has caused increase in pain, especially all the walking. He believes his medication is beneficial that his previous injection for his knees was performed by Dr. De León in August, which did afford him 80% relief, but has now decrease in efficacy due to the therapy. ALLERGIES: KEFLEX AND PLAVIX. CURRENT LIST OF MEDICATIONS: Oxycodone 7.5/325 b.i.d., morphine sulfate 30 mg b.i.d., Prilosec, multivitamin, Ambien, meloxicam, Tylenol PM, gabapentin, Glucotrol, Lipitor, Flomax, Senokot, glucosamine chondroitin and aspirin. PQRS: 1. He has osteoarthritic changes in his lower extremities and knees and spondylitic changes in his back. Denies any rheumatoid arthritis. 2. Height is 5 feet 9 inches, weight is 189, BMI is 28. This is a decrease of his previous weight at 222 in September. The patient report of 167 at his lowest weight during his COVID disease hospitalization. 3. Vital signs; blood pressure 150/78, pulse is 106, respirations 14, oxygen sat is 96%. [address] [address] PAIN MANAGEMENT CONSULTATION Name: LAINA COX [id number] Admission: 01/23/21 Attend Phys: Bailey Pisano Discharge: Date of : 54 Report #: [id number] 4. Pain score is 4/10. 5. Denies dizziness, uses a cane for ambulation. He has not fallen in the last 3 months. 6. The patient is not on any blood thinners, but does take medicine for hypertension. 7. Opioid therapy is greater than 6 weeks; therefore, an opioid signed contract is on the chart. Risk assessment is low. Functional assessment is 34/70. 8. Recreational drug use, he denies. He is a former smoker and does not drink alcohol. According to the prescription monitoring system, he did fill her last prescription in October that script was not used during his hospitalization and per his report, he has the entire prescription available to him. No meds needed today. PHYSICAL EXAMINATION: GENERAL: This is alert and orientated, pale 70-year-old gentleman, slightly pale and guant in appearance due to his recent hospitalization. Does have a scar on his face from being intubated. He is wearing a mask. HEENT: Normocephalic and atraumatic. Extraocular eye muscles are intact. His speech is fluent. MUSCULOSKELETAL: Has tenderness in his bilateral knees. No edema noted. Pain increases with ambulation and is utilizing a cane today. He has tenderness also in the lumbosacral region of his spine. He has an antalgic gait. ABDOMEN: Scar from previous G-tube from hospitalization for COVID. IMAGING: Plain films 3 views of knees bilaterally Findings: Minor arthrosis involving both knees. There is some right medial tibiofemoral compartment joint space narrowing. No effusion present. PLAN: 1. We discussed treatment options with the patient today. The patient is wondering about an injection in his knees. He has had greater than 80% relief from these injections in the past and found them very beneficial. He is doing physical therapy currently, which has aggravated his knees greater on the right and is wondering about a repeat injection. Dr. De León was present for part of this discussion, it was determined that we will perform x-rays of his bilateral knees today to determine the extent of his osteoarthritis and then schedule him for Synvisc injections in his knees bilaterally. The patient is not on any blood thinners and we will be able to perform these next week. Hopefully, this will aid in some of his discomfort and then be able to continue his rehabilitation therapy post-COVID VAC infection. 2. Orders were written for bilateral knee 3-view plain x-rays and Synvisc medications to be obtained for his procedure next week. 3. The patient is seen in collaboration with Dr. Roberto Carlos De León who did see the [facility] [address] [place] [address] PAIN MANAGEMENT CONSULTATION Name: LAINA COX Room #: [facility] [id number] Admission: 01/23/21 Attend Phys: Bailey Pisano Discharge: Date of : 54 Report #: [id number] patient as well today. Time spent with the patient in consultation, reviewing pertinent imaging, reviewing studies, clinical notes, physician reports and examination in correlation of physical findings, medical documentation to determine possible treatments of 20 minutes. Time spent in preparation for appointment, reviewing, prescription monitoring system, previous records and proposed treatment options, reviewing current medications of 5 minutes. Time spent with preparing and sending of prescriptions and x-ray orders and documentation of visit and plan of treatment with collaborated physician of Dr. Roberto Carlos De León of 10 minutes. Total time spent 35 minutes. <ELECTRONICALLY SIGNED> By: Bailey Pisano 01/23/21 1257 [id number] Bailey Pisano /nt
== END | disposition home or self-care (01) ==
LOC: RAD 06:41 → PAIN 06:41
PROVIDERS: ATTEND Clinical Nurse Specialist Adult Health
DX: M17.0 Bilateral primary osteoarthritis of knee (principal); M25.561 Pain in right knee; M25.562 Pain in left knee; Z98.890 Other specified postprocedural states; Z79.899 Other long term (current) drug therapy; Z87.891 Personal history of nicotine dependence

== ENCOUNTER → 2021-01-27 | Outpatient (CLI) | payer OTHER ==
[~2021-01-27] VITALS: Ht 175.3 cm; Wt 82.9 kg
[2021-01-27 10:52] VITALS: BP 124/69
--- NOTE | 2021-01-27 11:03 | NUR ---
Pain Clinic Assessment: 1. 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 Height: 5 ft. 9 in. 175.3 cm. Weight: 182.8 lb. oz. 82.918 kg. Patient's BMI: 27.0 3. Vital Signs: BP: 124/69 Pulse: 91 Resp: 16 Temp: 02 Sat: 96 ECG Mon: 4. Pain Intensity: 3 5. Fall Risk: Dizziness: Y Needs help standing or walking: Y Fallen in the last 3 months: N Fall risk comments: 6. Patient on Blood Thinner: None 7. History of Hypertension: Y 8. Opioid Therapy greater than 6 weeks: Y Opiate Contract Signed: 05/14/16 9. Risk Assessment Tool Provided: LOW RISK 3 10. Functional Assessment Tool: 11. Recreational Drug Use: Never Drug Type: Tobacco Use: Former Smoker Tobacco Type: Amount or Packs/day: How Many Years: Alcohol Use: No Frequency: Quant:
== END | disposition home or self-care (01) ==
LOC: PAIN 10:29
PROVIDERS: ATTEND Anesthesiology Pain Medicine
DX: M17.0 Bilateral primary osteoarthritis of knee (principal); M25.561 Pain in right knee; M25.562 Pain in left knee; Z98.890 Other specified postprocedural states; Z87.891 Personal history of nicotine dependence; Z79.899 Other long term (current) drug therapy; Z88.8 Allergy status to other drugs, medicaments and biological substances

== ENCOUNTER → 2021-02-10 | Outpatient (CLI) | payer OTHER ==
[~2021-02-10] VITALS: Ht 175.3 cm; Wt 85.0 kg
[2021-02-10 09:55] VITALS: BP 132/75
--- NOTE | 2021-02-10 10:02 | NUR ---
Pain Clinic Assessment: 1. 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 Height: 5 ft. 9 in. 175.3 cm. Weight: 187.4 lb. oz. 85.004 kg. Patient's BMI: 27.7 3. Vital Signs: BP: 132/75 Pulse: 87 Resp: 14 Temp: 02 Sat: 97 ECG Mon: 4. Pain Intensity: 3 5. Fall Risk: Dizziness: N Needs help standing or walking: Y Fallen in the last 3 months: N Fall risk comments: 6. Patient on Blood Thinner: None 7. History of Hypertension: Y 8. Opioid Therapy greater than 6 weeks: Y Opiate Contract Signed: 05/14/16 9. Risk Assessment Tool Provided: LOW RISK 3 10. Functional Assessment Tool: 11. Recreational Drug Use: Never Drug Type: Tobacco Use: Former Smoker Tobacco Type: Amount or Packs/day: How Many Years: Alcohol Use: No Frequency: Quant:
== END | disposition home or self-care (01) ==
LOC: PAIN 06:56
PROVIDERS: ATTEND Anesthesiology Pain Medicine
DX: M17.0 Bilateral primary osteoarthritis of knee (principal); M25.561 Pain in right knee; M25.562 Pain in left knee; G89.29 Other chronic pain; Z98.890 Other specified postprocedural states; Z79.899 Other long term (current) drug therapy

== ENCOUNTER → 2021-02-13 | Outpatient (CLI) | payer OTHER | LOC: RAD 09:30 | PROVIDERS: ATTEND Internal Medicine | DX: R91.1 Solitary pulmonary nodule (principal); J84.89 Other specified interstitial pulmonary diseases; J98.4 Other disorders of lung; R06.00 Dyspnea, unspecified ==

== ENCOUNTER → 2021-02-17 | Outpatient (CLI) | payer OTHER | LOC: LAB 13:52 | PROVIDERS: ATTEND Internal Medicine | DX: Z20.822 Contact with and (suspected) exposure to COVID-19 (principal) ==

== ENCOUNTER → 2021-02-21 | Outpatient (CLI) | payer OTHER ==
--- NOTE | 2021-02-27 17:31 | PFR/MVV ---
[facility] [place] [address] PULMONARY FUNCTION MVV/REPORT Name: LAINA COX Room #: REG [facility].#: [id number] Admission: 02/21/21 Attend Phys: John Barry MD Discharge: Date of : 54 Report #: [id number] THIS REPORT FOR: //name// >> SPIROMETRY: (BTPS) Height: 69 in cm Weight: 190 lbs kg Exam Date: 02/21/21 PRE-RX POST-RX PRED BEST %PRED BEST %PRED %CHG FVC LITERS . 4.27 . 2.74 . 64 . 2.77 . 65 . 1 FEV1 LITERS . 2.91 . 1.87 . 64 . 1.79 . 62 . -4 FEV1/FVC % . 69 . 68 . 99 . 65 . 94 . -5 [id number]% L/Sec . 2.70 . 1.21 . 45 . 1.27 . 47 . 5 PEF L/SEC . 8.10 . 2.65 . 33 . 2.83 . 35 . 6 FEF50/FIF50 UNITLESS . <1.00 . 0.46 . . 0.65 . . 41 MVV L/Min . . . f 1/Min . . . >> LUNG VOLUMES: (BTPS) PRE-RX POST-RX PRED AVG %PRED AVG %PRED %CHG VC Liters . 4.27 . 3.60 . 84 . . . TLC Liters . 6.30 . 3.66 . 58 . . . RV Liters . 2.44 . 0.06 . 3 . . . RV/TLC % . 40 . 2 . 4 . . . FRC PL Liters . 3.49 . 0.44 . 13 . . . FRC N2 Liters . 3.49 . . . . . ERV Liters . 1.45 . 0.38 . 26 . . . IC Liters . 2.90 . 3.30 . 114 . . . >> DIFFUSION: DLCO ml/Min/mmHg . 21.9 . 10.1 . 46 . . . DL Marcos ml/Min/mmHg . 21.9 . 10.1 . 46 . . . DLCO/VA ml/Min/mmHg . 3.53 . 3.42 . 97 . . . VA Liters . 6.90 . 2.95 . 43 . . . COMMENTS: COMMENTS: >> RESISTANCE: [facility] [address] [place] [address] PULMONARY FUNCTION MVV/REPORT Name: LAINA COX Room #: REG [facility].#: [id number] Admission: 02/21/21 Attend Phys: John Barry MD Discharge: Date of : 54 Report #: [id number] PRE-RX PRED AVG %PRED Raw Total cmH20/L/Sec . . 4.63 . Raw Insp cmH20/L/Sec . . 6.63 . Raw Exp cmH20/L/Sec . . 5.71 . Raw cmH20/L/Sec . 1.30 . 2.31 . 178 Gaw L/Sec/cmH20 . 0.837 . 0.433 . 52 sRaw cmH20 Sec . 4.52 . 5.76 . 128 sGaw l/cmH20 Sec . 0.221 . 0.714 . 78 Vtq Liters . . 2.50 . # = OUTSIDE 95% CONFIDENCE INTERVAL CALIBRATION: PRED: 3.00 ACTUAL: EXP 3.01 INSP 3.02 [facility]-OL10-06 [facility] N-1804-4 >> INTERPRETATION/IMPRESSION: Spirometric examination revealed moderate obstructive ventilatory defect. There was no significant bronchodilator response. Lung volumes revealed moderately reduced total lung capacity. Diffusion capacity is moderately reduced, normal when corrected for alveolar volume. Flow volume loop is consistent with restrictive pattern. IMPRESSION: Moderate mixed obstructive and restrictive ventilatory defect. <ELECTRONICALLY SIGNED> By: Justus Garcia MD 02/27/21 1731 Justus Garcia MD /nt
== END ==
LOC: PUL 07:56
PROVIDERS: ATTEND Internal Medicine
DX: J98.4 Other disorders of lung (principal); J84.9 Interstitial pulmonary disease, unspecified; I70.0 Atherosclerosis of aorta; I25.10 Atherosclerotic heart disease of native coronary artery without angina pectoris; I51.7 Cardiomegaly; M25.78 Osteophyte, vertebrae; Z95.5 Presence of coronary angioplasty implant and graft; Z88.8 Allergy status to other drugs, medicaments and biological substances; Z86.16 Personal history of COVID-19

== ENCOUNTER → 2021-03-03 | Outpatient (CLI) | payer OTHER ==
[~2021-03-03] VITALS: Ht 175.3 cm; Wt 87.3 kg
[2021-03-03 09:13] VITALS: BP 131/80
--- NOTE | 2021-03-03 09:27 | NUR ---
Pain Clinic Assessment: 1. 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 Height: 5 ft. 9 in. 175.3 cm. Weight: 192.4 lb. oz. 87.272 kg. Patient's BMI: 28.4 3. Vital Signs: BP: 131/80 Pulse: 87 Resp: 16 Temp: 02 Sat: 98 ECG Mon: 4. Pain Intensity: 2-3 5. Fall Risk: Dizziness: N Needs help standing or walking: N Fallen in the last 3 months: N Fall risk comments: 6. Patient on Blood Thinner: None 7. History of Hypertension: Y 8. Opioid Therapy greater than 6 weeks: Y Opiate Contract Signed: 05/14/16 9. Risk Assessment Tool Provided: LOW RISK 3 10. Functional Assessment Tool: 11. Recreational Drug Use: Never Drug Type: Tobacco Use: Former Smoker Tobacco Type: Amount or Packs/day: How Many Years: Alcohol Use: No Frequency: Quant:
== END | disposition home or self-care (01) ==
LOC: PAIN 06:55
PROVIDERS: ATTEND Anesthesiology Pain Medicine
DX: M17.0 Bilateral primary osteoarthritis of knee (principal); M25.561 Pain in right knee; M25.562 Pain in left knee; M19.90 Unspecified osteoarthritis, unspecified site; Z98.890 Other specified postprocedural states; Z79.899 Other long term (current) drug therapy; Z20.822 Contact with and (suspected) exposure to COVID-19; Z87.891 Personal history of nicotine dependence; Z88.8 Allergy status to other drugs, medicaments and biological substances

== ENCOUNTER → 2021-04-10 | Outpatient (CLI) | payer OTHER | LOC: RAD 08:55 | PROVIDERS: ATTEND Internal Medicine | DX: J98.4 Other disorders of lung (principal) ==

== ENCOUNTER → 2021-05-15 | Outpatient (CLI) | payer OTHER ==
[~2021-05-15] VITALS: Ht 175.3 cm; Wt 91.6 kg
[~2021-05-15] MED LIST changes: +PERCOCET 7.5-31 EAC1 PO; +PREDNISONE 10 M10 M1 PO
[2021-05-15 10:28] VITALS: BP 124/74
--- NOTE | 2021-05-15 10:46 | NUR ---
Pain Clinic Assessment: 1. 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 Height: 5 ft. 9 in. 175.3 cm. Weight: 202.0 lb. oz. 91.627 kg. Patient's BMI: 29.8 3. Vital Signs: BP: 124/74 Pulse: 88 Resp: 14 Temp: 02 Sat: 97 ECG Mon: 4. Pain Intensity: 2 5. Fall Risk: Dizziness: N Needs help standing or walking: N Fallen in the last 3 months: N Fall risk comments: 6. Patient on Blood Thinner: None 7. History of Hypertension: Y 8. Opioid Therapy greater than 6 weeks: Y Opiate Contract Signed: 05/14/16 9. Risk Assessment Tool Provided: LOW RISK 3 10. Functional Assessment Tool: 11. Recreational Drug Use: Never Drug Type: Tobacco Use: Former Smoker Tobacco Type: Amount or Packs/day: How Many Years: Alcohol Use: No Frequency: Quant:
== END ==
LOC: PAIN 06:59
PROVIDERS: ATTEND Clinical Nurse Specialist Adult Health
DX: M17.0 Bilateral primary osteoarthritis of knee (principal); G89.29 Other chronic pain; M47.816 Spondylosis without myelopathy or radiculopathy, lumbar region; M25.511 Pain in right shoulder; I10 Essential (primary) hypertension; Z86.16 Personal history of COVID-19; Z79.891 Long term (current) use of opiate analgesic; Z79.899 Other long term (current) drug therapy; Z87.891 Personal history of nicotine dependence; Z56.0 Unemployment, unspecified; Z88.1 Allergy status to other antibiotic agents

== ENCOUNTER → 2021-05-16 | Outpatient (CLI) | payer OTHER | LOC: CAT 08:19 | PROVIDERS: ATTEND Internal Medicine | DX: J47.9 Bronchiectasis, uncomplicated (principal); I25.10 Atherosclerotic heart disease of native coronary artery without angina pectoris; I51.7 Cardiomegaly; J84.9 Interstitial pulmonary disease, unspecified; Z86.16 Personal history of COVID-19 ==

== ENCOUNTER → 2021-05-20 | Outpatient (CLI) | payer OTHER | LOC: MRI 10:16 | PROVIDERS: ATTEND Clinical Nurse Specialist Adult Health | DX: S43.431A Superior glenoid labrum lesion of right shoulder, initial encounter (principal); M19.011 Primary osteoarthritis, right shoulder; X58.XXXA Exposure to other specified factors, initial encounter; Y93.89 Activity, other specified; Y92.89 Other specified places as the place of occurrence of the external cause; Y99.8 Other external cause status ==

== ENCOUNTER → 2021-08-14 | Outpatient (CLI) | payer OTHER ==
[~2021-08-14] VITALS: Ht 175.3 cm; Wt 97.1 kg
[~2021-08-14] MED LIST changes: +MS CONTIN15 MG PO
[2021-08-14 08:59] VITALS: BP 117/77
--- NOTE | 2021-08-14 09:16 | NUR ---
Pain Clinic Assessment: 1. 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 Height: 5 ft. 9 in. 175.3 cm. Weight: 214.0 lb. oz. 97.070 kg. Patient's BMI: 31.6 3. Vital Signs: BP: 117/77 Pulse: 79 Resp: 14 Temp: 02 Sat: 99 ECG Mon: 4. Pain Intensity: 2 WITH MEDS 8 BETWEEN MED 5. Fall Risk: Dizziness: N Needs help standing or walking: N Fallen in the last 3 months: N Fall risk comments: 6. Patient on Blood Thinner: None 7. History of Hypertension: Y 8. Opioid Therapy greater than 6 weeks: Y Opiate Contract Signed: 05/14/16 9. Risk Assessment Tool Provided: LOW RISK 3 10. Functional Assessment Tool: 11. Recreational Drug Use: Never Drug Type: Tobacco Use: Former Smoker Tobacco Type: Amount or Packs/day: How Many Years: Alcohol Use: No Frequency: Quant:
== END ==
LOC: PAIN 07:21
PROVIDERS: ATTEND Clinical Nurse Specialist Adult Health
DX: M17.0 Bilateral primary osteoarthritis of knee (principal); M47.816 Spondylosis without myelopathy or radiculopathy, lumbar region; Z86.16 Personal history of COVID-19; Z79.891 Long term (current) use of opiate analgesic; Z79.899 Other long term (current) drug therapy; Z88.8 Allergy status to other drugs, medicaments and biological substances

== ENCOUNTER → 2021-08-18 | Outpatient (CLI) | payer OTHER ==
[~2021-08-18] VITALS: Ht 175.3 cm; Wt 95.8 kg
[2021-08-18 10:52] VITALS: BP 137/82
--- NOTE | 2021-08-18 11:08 | NUR ---
Pain Clinic Assessment: 1. 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 Height: 5 ft. 9 in. 175.3 cm. Weight: 211.2 lb. oz. 95.800 kg. Patient's BMI: 31.2 3. Vital Signs: BP: 137/82 Pulse: 76 Resp: 18 Temp: 02 Sat: 97 ECG Mon: 4. Pain Intensity: 2 5. Fall Risk: Dizziness: N Needs help standing or walking: N Fallen in the last 3 months: N Fall risk comments: 6. Patient on Blood Thinner: None 7. History of Hypertension: Y 8. Opioid Therapy greater than 6 weeks: Y Opiate Contract Signed: 05/14/16 9. Risk Assessment Tool Provided: LOW RISK 3 10. Functional Assessment Tool: 11. Recreational Drug Use: Never Drug Type: Tobacco Use: Former Smoker Tobacco Type: Amount or Packs/day: How Many Years: Alcohol Use: No Frequency: Quant:
== END | disposition home or self-care (01) ==
LOC: PAIN 07:07
PROVIDERS: ATTEND Anesthesiology Pain Medicine
DX: M17.0 Bilateral primary osteoarthritis of knee (principal); G89.29 Other chronic pain; L40.9 Psoriasis, unspecified; M19.90 Unspecified osteoarthritis, unspecified site; Z98.890 Other specified postprocedural states; Z79.899 Other long term (current) drug therapy; Z87.891 Personal history of nicotine dependence; Z88.8 Allergy status to other drugs, medicaments and biological substances

== ENCOUNTER → 2021-09-26 | Outpatient (CLI) | payer OTHER | LOC: CAT 09:58 | PROVIDERS: ATTEND Internal Medicine | DX: K76.0 Fatty (change of) liver, not elsewhere classified (principal); K44.9 Diaphragmatic hernia without obstruction or gangrene; J84.9 Interstitial pulmonary disease, unspecified; Z86.16 Personal history of COVID-19; R91.8 Other nonspecific abnormal finding of lung field ==

== ENCOUNTER → 2021-11-03 | Outpatient (CLI) | payer OTHER ==
[~2021-11-03] VITALS: Ht 172.7 cm; Wt 98.4 kg
[~2021-11-03] MED LIST changes: +LASIX 20 MG TAB20 MG PO
[2021-11-03 12:42] VITALS: BP 145/78
--- NOTE | 2021-11-03 12:48 | NUR ---
[facility] Assessment: 1. 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 Height: 5 ft. 8 in. 172.7 cm. Weight: 217.0 lb. oz. 98.431 kg. Patient's BMI: 33.0 3. Vital Signs: BP: 145/78 Pulse: 82 Resp: 14 Temp: 02 Sat: 100 ECG Mon: 4. Pain Intensity: 6 5. Fall Risk: Dizziness: N Needs help standing or walking: Y Fallen in the last 3 months: N Fall risk comments: 6. Patient on Blood Thinner: None 7. History of Hypertension: Y 8. Opioid Therapy greater than 6 weeks: Y Opiate Contract Signed: 05/14/16 9. Risk Assessment Tool Provided: LOW RISK 3 10. Functional Assessment Tool: 11. Recreational Drug Use: Never Drug Type: Tobacco Use: Former Smoker Tobacco Type: Amount or Packs/day: How Many Years: Alcohol Use: No Frequency: Quant:
== END ==
LOC: PAIN 10:20
PROVIDERS: ATTEND Clinical Nurse Specialist Adult Health
DX: M17.0 Bilateral primary osteoarthritis of knee (principal); M47.819 Spondylosis without myelopathy or radiculopathy, site unspecified; Z86.16 Personal history of COVID-19; Z87.891 Personal history of nicotine dependence; Z88.8 Allergy status to other drugs, medicaments and biological substances; Z79.82 Long term (current) use of aspirin; Z79.899 Other long term (current) drug therapy